=== PATIENT | female | born 1940 | race Caucasian/White ===

== ENCOUNTER → 2016-07-16 | Outpatient (CLI) | payer BC ==
[~2016-07-16] MED LIST: ASPI81TA28 PO; CALC600T9 PO; CRAN1CAP15 PO; ESTCR BT; FLAXOIL2 PO; HYDR25CA PO; LEVO1TAB34 PO; LINE1TAB6 PO; MULT-506 PO; ZNTT/150 PO
--- NOTE | 2016-07-16 13:35 | DIAGNOSTIC IMAGING REPORT ---
MRI OF THE BRAIN WITHOUT IV CONTRAST CLINICAL HISTORY: Optic nerve disorder. COMPARISON STUDY: No priors. TECHNIQUE: MRI of the brain was performed utilizing various T1 and T2-weighted sequences in the axial, sagittal, and coronal planes. IV contrast was not administered for this examination. Additional high-resolution T2-weighted sequences were performed to the skull base to better assess the optic nerves. FINDINGS: Brain parenchyma: There is mild age-related involutional change. Minimal periventricular microangiopathic disease is identified. There is no hemorrhage or mass effect. There is no restricted diffusion to suggest acute ischemia. Bucio-white matter differentiation is preserved. No extra-axial fluid collection is seen. The cerebellar tonsils are normal in configuration. Ventricles, sulci, and cisterns: Normal in configuration. Pituitary and sella: The pituitary gland is prominent for age. Intracranial vasculature: Normal flow voids are maintained at the skull base. Orbits: The bony orbits are grossly intact. Orbital contents are normal in appearance noting bilateral ocular lens implants. The optic nerves appear normal and symmetric. Sinuses and mastoids: There is subtotal opacification of the left frontal as well as anterior left ethmoid sinuses. The remaining paranasal sinuses and the mastoid air cells are clear. Calvarium: Unremarkable. Cervical cord: Partially visualized cervical spinal cord is normal in morphology and signal intensity. IMPRESSION: 1. No acute intracranial abnormality. 2. The optic nerves are normal as imaged. 3. The pituitary gland is prominent for age. This is of indeterminant, if any, clinical significance. 4. Paranasal sinus disease as above. Electronically signed by: Martin Hughes M.D. 07/16/2016 1:34 PM Dictated Date/Time: 07/16/2016 1:29 PM
== END | disposition home or self-care (01) ==
LOC: C.MRI 12:32
PROVIDERS: ATTEND Family Medicine
DX: H47.099 Other disorders of optic nerve, not elsewhere classified, unspecified eye (principal)

== ENCOUNTER → 2016-08-20 | Outpatient (CLI) | payer BC ==
--- NOTE | 2016-08-20 16:08 | MAMMOGRAPHY REPORT ---
BILATERAL DIGITAL SCREENING MAMMOGRAM WITH CAD: 08/20/2016 CLINICAL HISTORY: Routine screening. Patient has no complaints. TECHNIQUE: Bilateral CC and MLO views were obtained. Current study was also evaluated with a Comput er Aided Detection (CAD) system. COMPARISON: Comparison is made to exams dated: 08/12/2015 mammogram, 07/31/2013 mammogram, 08/06/2014 m ammogram, 07/25/2012 mammogram, 07/20/2011 mammogram, and 07/14/2010 mammogram - [facility] enter. BREAST COMPOSITION: There are scattered areas of fibroglandular density in both breasts. FINDINGS: There are scattered benign rim calcifications in the breasts. No suspicious mass, rhett ectural distortion or cluster of microcalcifications is seen. IMPRESSION: ACR BI-RADS CATEGORY 1: NEGATIVE There is no mammographic evidence of malignancy. A 1 year screening mammogram is recommended. The p atient will receive written notification of the results. Approximately 10% of breast cancers are not detected with mammography. A negative mammographic repor t should not delay biopsy if a clinically suggestive mass is present. Rosemary Russell M.D. ay/:08/20/2016 15:55:27 Chief Legal Officer: Kelley SNYDER(Naveed)(M), [facility] letter sent: Normal 1/2 BI-RADS Code: ACR BI-RADS Category 1: Negative
== END | disposition home or self-care (01) ==
LOC: C.MAMM 14:28
PROVIDERS: ATTEND Family Medicine
DX: Z12.31 Encounter for screening mammogram for malignant neoplasm of breast (principal)

== ENCOUNTER → 2017-03-04 | Outpatient (CLI) | payer BC ==
[~2017-03-04] MED LIST changes: -LEVO1TAB34 PO; -LINE1TAB6 PO
== END | disposition home or self-care (01) ==
LOC: C.RDSM 14:04
PROVIDERS: ATTEND Family Medicine
DX: R22.30 Localized swelling, mass and lump, unspecified upper limb (principal)

== ENCOUNTER → 2017-06-17 | Outpatient (CLI) | payer BC ==
--- NOTE | 2017-06-17 12:31 | DIAGNOSTIC IMAGING REPORT ---
ABDOMINAL ULTRASOUND COMPLETE HISTORY: Abdominal bloating.. COMPARISON: Abdominal ultrasound 11/16/2011. FINDINGS: Pancreas: The pancreas demonstrates a normal echotexture. Main pancreatic duct is top normal in diameter measuring between 2 and 3 mm. Liver: Unremarkable. Gallbladder: No gallbladder wall thickening. No gallstones. CBD: 3 mm. Kidneys: The right kidney measures 10 cm and the left kidney measures 9.7 cm. Mild fullness within the right renal pelvis without tremaine hydronephrosis. Spleen: Normal in size. Aorta: The visualized proximal abdominal aorta is normal in caliber. The mid to distal abdominal aorta is obscured by overlying bowel gas. IVC: Patent. IMPRESSION: 1. Normal gallbladder. No gallstones. 2. Mild fullness within the right renal pelvis without tremaine hydronephrosis. 3. No acute process within the abdomen. Electronically signed by: Stevan Walters M.D. 06/17/2017 12:29 PM Dictated Date/Time: 06/17/2017 12:26 PM
--- NOTE | 2017-06-17 12:39 | DIAGNOSTIC IMAGING REPORT ---
EXAMINATION: PELVIC ULTRASOUND (transabdominal and endovaginal scanning) CLINICAL HISTORY: ABD BLOATING COMPARISON STUDY: None FINDINGS: The uterus measured 5.4 x 2.3 x 3.4 cm. The endometrial stripe measured 2 mm. There is trace fluid within the endometrial cavity. Neither ovary was visualized There was no evidence of pathologic free pelvic fluid. IMPRESSION: 1. Nonvisualization of the ovaries 2. No uterine masses identified Electronically signed by: Kirill Shelby M.D. 06/17/2017 12:37 PM Dictated Date/Time: 06/17/2017 12:36 PM
== END | disposition home or self-care (01) ==
LOC: C.ULTR 11:08
PROVIDERS: ATTEND Family Medicine
DX: R14.0 Abdominal distension (gaseous) (principal)

== ENCOUNTER → 2017-06-26 | Outpatient (CLI) | payer BC ==
--- NOTE | 2017-06-26 15:32 | DIAGNOSTIC IMAGING REPORT ---
L-SPINE MIN 4 VIEWS ROUTINE HISTORY: Pain. Neuropathy. M54.17 Lumbosacral [id number] COMPARISON: None. FINDINGS: There is no fracture. No subluxation. Moderate degenerative disc change throughout. Moderate degenerative change posterior elements. IMPRESSION: No fracture or subluxation within the lumbar spine. Moderate degenerative change. No acute bony abnormality. The above report was generated using voice recognition software. It may contain grammatical, syntax or spelling errors. Electronically signed by: Liam Lawrence M.D. 06/26/2017 3:31 PM Dictated Date/Time: 06/26/2017 3:29 PM
== END | disposition home or self-care (01) ==
LOC: C.RAD1850 15:15
PROVIDERS: ATTEND Psychiatry & Neurology Neurology
DX: M54.17 Radiculopathy, lumbosacral region (principal)

== ENCOUNTER → 2017-08-19 | Outpatient (CLI) | payer BC ==
[~2017-08-19] MED LIST changes: +RANI150T85 PO; -ZNTT/150 PO
== END | disposition home or self-care (01) ==
LOC: C.MAMM 13:35
PROVIDERS: ATTEND Family Medicine
DX: M85.89 Other specified disorders of bone density and structure, multiple sites (principal)

== ENCOUNTER → 2017-08-21 | Outpatient (CLI) | payer BC ==
--- NOTE | 2017-08-22 15:15 | MAMMOGRAPHY REPORT ---
BILATERAL DIGITAL SCREENING MAMMOGRAM TOMOSYNTHESIS WITH CAD: 08/21/2017 CLINICAL HISTORY: Routine screening. Patient has no complaints. TECHNIQUE: Breast tomosynthesis in addition to standard 2D mammography was performed. Current study was also evaluated with a Computer Aided Detection (CAD) system. COMPARISON: Comparison is made to exams dated: 08/20/2016 mammogram, 08/12/2015 mammogram, 08/06/2014 ma mmogram, 07/31/2013 mammogram, 07/25/2012 mammogram, and 07/20/2011 mammogram - [facility]ter. BREAST COMPOSITION: There are scattered areas of fibroglandular density in both breasts. FINDINGS: There are a few scattered benign rim calcifications. No suspicious mass, architectural dis tortion or cluster of microcalcifications is seen. IMPRESSION: ACR BI-RADS CATEGORY 1: NEGATIVE There is no mammographic evidence of malignancy. A 1 year screening mammogram is recommended. The pa tient will receive written notification of the results. Approximately 10% of breast cancers are not detected with mammography. A negative mammographic report should not delay biopsy if a clinically suggestive mass is present. Rosemary Russell M.D. ay/:08/21/2017 15:34:55 Research Project Coordinator: Laquita SNYDER(Naveed)(Vikki), [facility] letter sent: Normal 1/2 BI-RADS Code: ACR BI-RADS Category 1: Negative
== END | disposition home or self-care (01) ==
LOC: C.MAMM 13:47
PROVIDERS: ATTEND Family Medicine
DX: Z12.31 Encounter for screening mammogram for malignant neoplasm of breast (principal)

== ENCOUNTER 2018-01-11 14:03 | Inpatient (IN) | payer BC, OTHER ==
[2018-01-11] VITALS (12 sets, daily range): BP systolic 108–177; BP diastolic 58–86; PULSE 60–84; TEMP 36.5–37; O2SAT 95–100; Ht 160 cm; Wt 52.2 kg
[~2018-01-11] VITALS: Ht 160 cm; Wt 52.2 kg
[~2018-01-11 14:03] MED LIST changes: -ASPI81TA28 PO; -CALC600T9 PO; -ESTCR BT; -FLAXOIL2 PO; -MULT-506 PO; -RANI150T85 PO
[2018-01-11] MEDS ORDERED: SODIUM CHLORIDE 0.9% 1000ML 1,000 ML IV STA (14:16)
[2018-01-11] MEDS ORDERED: ASPI81TA28 PO (14:21)
[2018-01-11] MEDS ORDERED: RANI150T85 PO (14:21)
[2018-01-11] MEDS ORDERED: FLAXOIL2 PO (14:21)
[2018-01-11] MEDS ORDERED: ESTCR BT (14:21)
[2018-01-11] MEDS ORDERED: MULT-506 PO (14:21)
[2018-01-11] MEDS ORDERED: CALC600T9 PO (14:21)
[2018-01-11 14:44] LABS: PTT PATIENT 23.6 SECONDS (21.0-31.0)
--- NOTE | 2018-01-11 14:44 | DIAGNOSTIC IMAGING REPORT ---
SINGLE VIEW CHEST CLINICAL HISTORY: Anemia. FINDINGS: An AP, portable, upright chest radiograph is compared to study dated 10/25/2010. The examination is degraded by portable technique and patient rotation. The heart is top normal for projection and there is atherosclerotic calcification of the thoracic aorta. Chronic interstitial thickening is similar to previous. Linear atelectasis versus scarring is noted in the left lower lung. No airspace consolidation or pleural effusion is identified. No pneumothorax is seen. The skeletal structures are osteopenic. The bony thorax is grossly intact. Mild degenerative change and scoliosis are identified in the thoracic spine. IMPRESSION: No acute cardiopulmonary abnormality. Electronically signed by: Martin Hughes M.D. 01/11/2018 2:43 PM Dictated Date/Time: 01/11/2018 2:42 PM
[2018-01-11 14:46] LABS: HEMATOCRIT 21.1 % (37-47); HEMOGLOBIN 5.9 g/dL (12.0-16.0); MEAN CELL VOLUME 66.6 fL (80-100); MEAN CORPUSCULAR HEMOGLOBIN 18.6 pg (25-34); MEAN PLATELET VOLUME 7.3 fL (7.4-10.4); PLATELET COUNT 390 K/uL (130-400); RED CELL DISTRIBUTION WIDTH CV 17.3 % (11.5-14.5); RED CELL DISTRIBUTION WIDTH SD 42.6 fL (36.4-46.3); WHITE BLOOD COUNT 7.31 K/uL (4.8-10.8)
[2018-01-11 14:53] LABS: BASO % 0.3 %; BASO ABS # 0.02 K/uL (0-0.2); EOS % 0.8 %; EOS ABS # 0.06 K/uL (0-0.5); IG# 0.02 K/uL (0.00-0.02); LYMPH % 21.6 %; LYMPH ABS # 1.58 K/uL (1.2-3.4); MONO % 14.2 %; MONO ABS # 1.04 K/uL (0.11-0.59); NEUT % 62.8 %; NEUT ABS # 4.59 K/uL (1.4-6.5)
[2018-01-11 15:00] LABS: ALBUMIN 3.6 gm/dl (3.4-5.0); ALKALINE PHOSPHATASE 69 U/L (45-117); ALT/SGPT 21 U/L (12-78); AST/SGOT 20 U/L (15-37); BLOOD UREA NITROGEN 17 mg/dl (7-18); CALCIUM 8.6 mg/dl (8.5-10.1); CARBON DIOXIDE 26 mmol/L (21-32); CREATININE 0.93 mg/dl (0.60-1.20); GLUCOSE 87 mg/dl (70-99); LIPASE 179 U/L (73-393); SODIUM 136 mmol/L (136-145); TOTAL PROTEIN 7.2 gm/dl (6.4-8.2)
[2018-01-11] MEDS ORDERED: ACETAMINOPHEN 325 MG TAB PO PRN (17:00)
[2018-01-11] MEDS ORDERED: ONDANSETRON INJ 2 MG/ML 2 ML VIAL IV PRN (17:00)
--- NOTE | 2018-01-11 17:10 | EMERGENCY ROOM VISIT NOTE ---
History Report prepared by Tomas: Esdras Rosario Under the Supervision of: Dr. Blair Peoples D.O. First contact with patient: 14:07 Chief Complaint: ABNORMAL LABS Stated Complaint: HEMOGLOBIN 5, REF'D BY DR RUBALCAVA History of Present Illness The patient is a 77 year old female who presents to the Emergency Room after referral form her primary care physician's office for abnormal findings on laboratory studies that were found today. The patient's daughter at bedside notes that laboratory work showed a hemoglobin of 6. The patient notes that she had the laboratory work performed due to unusual "burning, soreness, and spasms " in her lower extremities. The patient denies any physical complaints at this time, although she does not some shortness of breath upon exertion. She denies any further headache, change in vision, fevers, chest pain, nausea, vomiting, diarrhea, pain with urination, and melena. Her last colonoscopy was 10 years ago. Source of History: patient, family Onset: Today Position: leg (bilateral) Quality: other ("burning, soreness, and spasms") Timing: other (Lab work found today) Associated Symptoms: + SOB, No nausea, No vomiting, No diarrhea Review of Systems See HPI for pertinent positives & negatives. A total of 10 systems reviewed and were otherwise negative. Past Medical & Surgical Medical Problems: (1) Foot ulcer (2) Severe anemia Family History Omitted secondary to patient age. Social History Smoking Status: Never Smoker Drug Use: none Marital Status: Occupation Status: retired Current/Historical Medications Scheduled Aspirin (Aspirin Ec), 81 MG PO DAILY Calcium Carbonate-Vitamin D (Calcium + D), 1 TABS PO DAILY Estradiol Vaginal (Estrace), 1 APPL BT 2XWK Flaxseed (Linseed) (Flax Oil), 1 CAP PO DAILY Multivitamin (Multivitamin), 1 TAB PO DAILY Ranitidine (Zantac), 1 TAB PO BID Allergies Coded Allergies: Azithromycin (Unverified Allergy, Mild, RASH, 01/11/18) Banana (Unverified Allergy, Mild, RASH, 01/11/18) Cephalexin (Unverified Allergy, Mild, RASH, 01/11/18) Dexamethasone (Unverified Allergy, Mild, RASH, 01/11/18) Doxycycline (Unverified Allergy, Mild, RASH, 01/11/18) Penicillins (Unverified Allergy, Mild, RASH, 01/11/18) Sulfa Antibiotics (Unverified Allergy, Mild, RASH, 01/11/18) Triamcinolone (Unverified Allergy, Mild, RASH, 01/11/18) Fluticasone (Unverified Adverse Reaction, Mild, RASH, 01/11/18) Prednisone (Unverified Adverse Reaction, Mild, RASH, 01/11/18) Uncoded Allergies: kenalog (Allergy, Mild, RASH, 11/06/16) milk products (Allergy, Mild, RASH, 11/06/16) Physical Exam Vital Signs Date Time Temp Pulse Resp B/P (MAP) Pulse Ox O2 Delivery O2 Flow Rate FiO2 01/11/18 15:35 70 14 144/73 100 Room Air 01/11/18 14:38 67 01/11/18 14:34 99 Room Air 01/11/18 14:05 36.7 81 18 160/77 97 Room Air Physical Exam GENERAL: Sitting up in bed, appears pale, alert, well appearing, well nourished , no distress, non-toxic EYE EXAM: normal conjunctiva. OROPHARYNX: no exudate, no erythema, lips, buccal mucosa, and tongue normal and mucous membranes are moist NECK: supple, no nuchal rigidity, no adenopathy, non-tender LUNGS: Clear to auscultation. Normal chest wall mechanics HEART: no murmurs, S1 normal and S2 normal ABDOMEN: abdomen soft, non-tender, normo-active bowel sounds, no masses, no rebound or guarding. BACK: Back is symmetrical on inspection and there is no deformity, no midline tenderness, no CVA tenderness. SKIN: no rashes and no bruising UPPER EXTREMITIES: upper extremities are grossly normal. LOWER EXTREMITIES: No pitting edema. NEURO EXAM: Normal sensorium, cranial nerves II-XII grossly intact, normal speech, no gross weakness of arms, no gross weakness of legs. RECTAL: Rectal exam heme negative. Medical Decision & Procedures ER Provider Diagnostic Interpretation: Radiology results as stated below per my review and the radiologist's interpretation: SINGLE VIEW CHEST CLINICAL HISTORY: Anemia. FINDINGS: An AP, portable, upright chest radiograph is compared to study dated 10/25/2010. The examination is degraded by portable technique and patient rotation. The heart is top normal for projection and there is atherosclerotic calcification of the thoracic aorta. Chronic interstitial thickening is similar to previous. Linear atelectasis versus scarring is noted in the left lower lung. No airspace consolidation or pleural effusion is identified. No pneumothorax is seen. The skeletal structures are osteopenic. The bony thorax is grossly intact. Mild degenerative change and scoliosis are identified in the thoracic spine. IMPRESSION: No acute cardiopulmonary abnormality. Electronically signed by: Martin Hughes M.D. 01/11/2018 2:43 PM Dictated Date/Time: 01/11/2018 2:42 PM Laboratory Results 01/11/18 14:25 Red Blood Count 3.17, Mean Corpuscular Volume 66.6, Mean Corpuscular Hemoglobin 18.6, Mean Corpuscular Hemoglobin Concent 28.0, Mean Platelet Volume 7.3, Neutrophils (%) (Auto) 62.8, Lymphocytes (%) (Auto) 21.6, Monocytes (%) (Auto) 14.2, Eosinophils (%) (Auto) 0.8, Basophils (%) (Auto) 0.3, Neutrophils # (Auto ) 4.59, Lymphocytes # (Auto) 1.58, Monocytes # (Auto) 1.04, Eosinophils # (Auto ) 0.06, Basophils # (Auto) 0.02 01/11/18 14:25 Test 01/11/18 14:25 White Blood Count 7.31 K/uL (4.8-10.8) Red Blood Count 3.17 M/uL (4.2-5.4) Hemoglobin 5.9 g/dL (12.0-16.0) Hematocrit 21.1 % (37-47) Mean Corpuscular Volume 66.6 fL (80-100) Mean Corpuscular Hemoglobin 18.6 pg (25-34) Mean Corpuscular Hemoglobin Concent 28.0 g/dl (32-36) Platelet Count 390 K/uL (130-400) Mean Platelet Volume 7.3 fL (7.4-10.4) Neutrophils (%) (Auto) 62.8 % Lymphocytes (%) (Auto) 21.6 % Monocytes (%) (Auto) 14.2 % Eosinophils (%) (Auto) 0.8 % Basophils (%) (Auto) 0.3 % Neutrophils # (Auto) 4.59 K/uL (1.4-6.5) Lymphocytes # (Auto) 1.58 K/uL (1.2-3.4) Monocytes # (Auto) 1.04 K/uL (0.11-0.59) Eosinophils # (Auto) 0.06 K/uL (0-0.5) Basophils # (Auto) 0.02 K/uL (0-0.2) RDW Standard Deviation 42.6 fL (36.4-46.3) RDW Coefficient of Variation 17.3 % (11.5-14.5) Immature Granulocyte % (Auto) 0.3 % Immature Granulocyte # (Auto) 0.02 K/uL (0.00-0.02) Hypochromasia PRESENT Microcytosis PRESENT Prothrombin Time 10.8 SECONDS (9.0-12.0) Prothromb Time International Ratio 1.0 (0.9-1.1) Activated Partial Thromboplast Time 23.6 SECONDS (21.0-31.0) Partial Thromboplastin Ratio 0.9 Anion Gap 7.0 mmol/L (3-11) Est Creatinine Clear Calc Drug Dose 41.1 ml/min Estimated GFR () 68.2 Estimated GFR (Non- 58.9 BUN/Creatinine Ratio 18.3 (10-20) Calcium Level 8.6 mg/dl (8.5-10.1) Total Bilirubin 0.5 mg/dl (0.2-1) Direct Bilirubin 0.2 mg/dl (0-0.2) Aspartate Amino Transf (AST/SGOT) 20 U/L (15-37) Alanine Aminotransferase (ALT/SGPT) 21 U/L (12-78) Alkaline Phosphatase 69 U/L (45-117) Troponin I < 0.015 ng/ml (0-0.045) Total Protein 7.2 gm/dl (6.4-8.2) Albumin 3.6 gm/dl (3.4-5.0) Lipase 179 U/L (73-393) Laboratory results per my review. Medications Administered Medications (Trade) Dose Ordered Sig/Romana Route Start Time Stop Time Status Last Admin Dose Admin Sodium Chloride 1,000 ml @ 999 mls/hr Q1H1M STAT IV 01/11/18 14:16 01/11/18 15:16 DC 01/11/18 14:42 999 MLS/HR ECG Per My Interpretation Indication: other (Anemia) Rate (beats per minute): 66 Rhythm: sinus rhythm Findings: no ectopy, other (LAD) ED Course ED COURSE: Vital signs were reviewed and showed situationally hypertensive vitals. The patients medical record was reviewed The above diagnostic studies were performed and reviewed. ED treatments and interventions as stated above. 1407: The patient was evaluated in room B11B. A complete history and physical examination was performed. 1451: I performed a rectal exam at this time. See physical exam for further findings. 1416: Ordered Sodium Chloride 1000 mL @ 999 mL/hr IV. 1514: I discussed with Dr. Janny FERREIRA Hospitalist. He will evaluate the patient for further treatment. []: Upon reevaluation, the patient is []. I discussed my findings with the [ patient] and [] understands and agrees with the treatment plan. Based on the patients age, coexisting illnesses, exam and lab findings the decision to treat as an [inpatient][outpatient] was made. The patient remained stable while under my care. [The patient appeared well at the time of discharge.] [The patient will be evaluated for further management.] Medical Decision Differential Diagnosis includes but is not limited to dehydration, stroke, anemia, hypoglycemia, hyponatremia, hypernatremia, urinary tract infection, pneumonia, bronchitis, sepsis, gastroenteritis, additional abdominal pathology, metabolic abnormalities and infections. Patient is a 77-year-old female who presents the ER referred in by PCP. She does admit to some exertional shortness of breath and fatigue. No other complaints. Hemoglobin was obtained and showed 5.9. MCV was low at 66. Rectally heme-negative. CBC along with BMP, LFTs, bilirubin and troponin was negative. Lipase is normal. No blood thinners. No other complaints. Patient was typed and crossed and given 2 units of PRBCs. Patient was given 2 units of PRBCs. Patient was monitored closely and admitted to internal medicine with symptomatic anemia and hemoglobin of 5.9 given 2 units of PRBCs. Medication Reconcilliation Current Medication List: was personally reviewed by me Blood Pressure Screening Patient's blood pressure: Elevated blood pressure Blood pressure disposition: Elevated BP felt to be situational Consults Time Called: 1508 Consulting Physician: Dr. Janny FERREIRA Hospitalist Returned Call: [address] Janny Butterfield. He will evaluate the patient for further treatment. Impression Primary Impression: Symptomatic anemia Critical Care I have personally spent 35 minutes of critical care time in the direct management of this patient. This includes bedside care, interpretation of diagnostic studies, and testing, discussion with consultants, patient, and family members, and other required patient management activities. This 35 minutes is in excess of all separately billable procedures. Scribe Attestation The scribe's documentation has been prepared under my direction and personally reviewed by me in its entirety. I confirm that the note above accurately reflects all work, treatment, procedures, and medical decision making performed by me. Departure Information Dispostion Being Evaluated By Hospitalist Referrals Darline Rubalcava D.O. (PCP) Patient Instructions My [facility]
--- NOTE | 2018-01-11 17:45 | History and Physical ---
History & Physical Date & Time of Service: Jan 11, 2018 at 17:25 Chief Complaint: Hemoglobin 5, Ref'd By Dr Marte Primary Care Physician: Darline Marte D.O. History of Present Illness Source: patient, family, clinic records, hospital records Pt is a 77yo with 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 States she saw her PCP on prior for a crampy/ "funny" feeling in her legs. Blood work was done and showed a hg of 6, and once resulted she was told to proceed to the ED immediately. She however, presented today. Denies hemoptysis, melena/hematochezia, or vaginal bleeds. States last colonoscopy was 10 years ago and unremarkable. Diet consists of cereal for breakfast with no milk (allergic) and fruit for lunch. States dinner is her heaviest meal and she eats anything. Denies being on a blood thinner. Has never had history of bleeding abnormally. Has some bruising on her right arm which she attributes to hitting it while working in her closet. Daughter in the room states that her daughter (pt's granddaughter) was recently diagnosed with von Willebrand's Disease 4 months prior. Pt was not aware of that. Both patient and daughter state that they have noticed that she was paler than usual for the last 3 days. Pt denies dizziness, SOB, chest pain, palpitations, N/V, diarrhea and constipation. Past Medical/Surgical History Medical Problems: (1) Foot ulcer (2) Severe anemia Family History Pt's daughter states that pt's granddaughter has diagnosis of von Willebrand's disease. Social History Smoking Status: Never Smoker Alcohol Use: none Drug Use: none Marital Status: Occupational Status: retired Allergies Coded Allergies: Azithromycin (Unverified Allergy, Mild, RASH, 01/11/18) Banana (Unverified Allergy, Mild, RASH, 01/11/18) Cephalexin (Unverified Allergy, Mild, RASH, 01/11/18) Dexamethasone (Unverified Allergy, Mild, RASH, 01/11/18) Doxycycline (Unverified Allergy, Mild, RASH, 01/11/18) Penicillins (Unverified Allergy, Mild, RASH, 01/11/18) Sulfa Antibiotics (Unverified Allergy, Mild, RASH, 01/11/18) Triamcinolone (Unverified Allergy, Mild, RASH, 01/11/18) Fluticasone (Unverified Adverse Reaction, Mild, RASH, 01/11/18) Prednisone (Unverified Adverse Reaction, Mild, RASH, 01/11/18) Uncoded Allergies: kenalog (Allergy, Mild, RASH, 11/06/16) milk products (Allergy, Mild, RASH, 11/06/16) Home Medications Scheduled Aspirin (Aspirin Ec), 81 MG PO DAILY Calcium Carbonate-Vitamin D (Calcium + D), 1 TABS PO DAILY Estradiol Vaginal (Estrace), 1 APPL BT 2XWK Flaxseed (Linseed) (Flax Oil), 1 CAP PO DAILY Multivitamin (Multivitamin), 1 TAB PO DAILY Ranitidine (Zantac), 1 TAB PO BID Review of Systems Constitutional: + fatigue Respiratory: No cough, No shortness of breath, No dyspnea on exertion, No dyspnea at rest, No hemoptysis Cardiovascular: No chest pain, No edema, No claudication, No palpitations Abdomen: No pain, No nausea, No vomiting, No diarrhea, No constipation, No GI bleeding Musculoskeletal: No calf pain Genitourinary - Female: No hematuria, No menorrhagia, No vaginal bleeding Hematologic / Lymphatic: No abnormal bleeding/bruising, No clotting problems, No swollen lymph nodes Integumentary: + color change (skin paler) Physical Exam Vital Signs Date Time Temp Pulse Resp B/P (MAP) Pulse Ox O2 Delivery O2 Flow Rate FiO2 01/11/18 17:10 37.0 84 20 159/76 99 01/11/18 15:35 70 14 144/73 100 Room Air 01/11/18 14:38 67 01/11/18 14:34 99 Room Air 01/11/18 14:05 36.7 81 18 160/77 97 Room Air General Appearance: WD/WN, no apparent distress Head: normocephalic, atraumatic Eyes: PERRL Neck: supple, no adenopathy, no JVD, no carotid bruits Respiratory/Chest: lungs clear, normal breath sounds, no respiratory distress, no accessory muscle use Cardiovascular: regular rate, rhythm, no edema, normal peripheral pulses Abdomen/GI: normal bowel sounds, non tender, soft Extremities/Musculoskelatal: no calf tenderness, normal capillary refill, no pedal edema, + pertinent finding (Right arm has multiple 2-3cm red/purple bruises) Neurologic/Psych: linoleum floor layer II-XII nml as tested, alert, normal mood/affect, oriented x 3 Skin: warm/dry Diagnostics Laboratory Results Results Past 24 Hours Test 01/11/18 14:25 Range/Units White Blood Count 7.31 4.8-10.8 K/uL Red Blood Count 3.17 4.2-5.4 M/uL Hemoglobin 5.9 12.0-16.0 g/dL Hematocrit 21.1 37-47 % Mean Corpuscular Volume 66.6 80-100 fL Mean Corpuscular Hemoglobin 18.6 25-34 pg Mean Corpuscular Hemoglobin Concent 28.0 32-36 g/dl Platelet Count 390 130-400 K/uL Mean Platelet Volume 7.3 7.4-10.4 fL Neutrophils (%) (Auto) 62.8 % Lymphocytes (%) (Auto) 21.6 % Monocytes (%) (Auto) 14.2 % Eosinophils (%) (Auto) 0.8 % Basophils (%) (Auto) 0.3 % Neutrophils # (Auto) 4.59 1.4-6.5 K/uL Lymphocytes # (Auto) 1.58 1.2-3.4 K/uL Monocytes # (Auto) 1.04 0.11-0.59 K/uL Eosinophils # (Auto) 0.06 0-0.5 K/uL Basophils # (Auto) 0.02 0-0.2 K/uL RDW Standard Deviation 42.6 36.4-46.3 fL RDW Coefficient of Variation 17.3 11.5-14.5 % Immature Granulocyte % (Auto) 0.3 % Immature Granulocyte # (Auto) 0.02 0.00-0.02 K/uL Hypochromasia PRESENT Microcytosis PRESENT Prothrombin Time 10.8 9.0-12.0 SECONDS Prothromb Time International Ratio 1.0 0.9-1.1 Activated Partial Thromboplast Time 23.6 21.0-31.0 SECONDS Partial Thromboplastin Ratio 0.9 Sodium Level 136 136-145 mmol/L Potassium Level 4.0 3.5-5.1 mmol/L Chloride Level 103 98-107 mmol/L Carbon Dioxide Level 26 21-32 mmol/L Anion Gap 7.0 3-11 mmol/L Blood Urea Nitrogen 17 7-18 mg/dl Creatinine 0.93 0.60-1.20 mg/dl Est Creatinine Clear Calc Drug Dose 41.1 ml/min Estimated GFR () 68.2 Estimated GFR (Non- 58.9 BUN/Creatinine Ratio 18.3 10-20 Random Glucose 87 70-99 mg/dl Calcium Level 8.6 8.5-10.1 mg/dl Total Bilirubin 0.5 0.2-1 mg/dl Direct Bilirubin 0.2 0-0.2 mg/dl Aspartate Amino Transf (AST/SGOT) 20 15-37 U/L Alanine Aminotransferase (ALT/SGPT) 21 12-78 U/L Alkaline Phosphatase 69 45-117 U/L Troponin I < 0.015 0-0.045 ng/ml Total Protein 7.2 6.4-8.2 gm/dl Albumin 3.6 3.4-5.0 gm/dl Lipase 179 73-393 U/L Diagnostic Radiology SINGLE VIEW CHEST CLINICAL HISTORY: Anemia. FINDINGS: An AP, portable, upright chest radiograph is compared to study dated 10/25/2010. The examination is degraded by portable technique and patient rotation. The heart is top normal for projection and there is atherosclerotic calcification of the thoracic aorta. Chronic interstitial thickening is similar to previous. Linear atelectasis versus scarring is noted in the left lower lung. No airspace consolidation or pleural effusion is identified. No pneumothorax is seen. The skeletal structures are osteopenic. The bony thorax is grossly intact. Mild degenerative change and scoliosis are identified in the thoracic spine. IMPRESSION: No acute cardiopulmonary abnormality. Electronically signed by: Martin Hughes M.D. 01/11/2018 2:43 PM Dictated Date/Time: 01/11/2018 2:42 PM Normal EKG (HR of 66) Impression Assessment and Plan Pt is a 77yo with 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 Severe Iron deficiency Anemia - Pt was transfused 1 unit of PRBCs in the ED and will get one more. 2 PRBC on hold. will monitor H/H - No active bleeding. Likely chronic bleeding - last hb in [employer] from 2016 - hb 10 with low end of MCV - Consult with GI for work up - Positive fam hx of von Willebrand's - aptt normal. -hold home med aspirin GERD -Hold home med ranitidine -Administer Protonix 40mg PRN Livedoid vasculitis -not currently symptomatic -will follow with PCP DVT Prophylaxis: SCDs Diet: Regular diet Disposition: -Admit to floor (likely Med-Surg) Full Resuscitation SCD Resuscitation Status Full resuscitation VTE Prophylaxis Will order VTE Prophylaxis: Yes (SCDs) Reviewed: Pt Seen/Exam by Me History 77 y/o F sent to ED for noted severe anemia Constitutional: denies: fever, weakness Respiratory: negative: short of breath Cardiovascular: denies chest pain Gastrointestinal/Abdominal: positive: no symptoms reported, negative: abdominal pain Musculoskeletal: negative: back pain Neurological/Psych: positive: other (had restless leg symptoms +) General Appearance: no apparent distress Respiratory: lungs clear, no respiratory distress Cardiovascular: regular rate, rhythm Gastrointestinal: soft Neurologic/Psychiatric: alert, oriented x 3 Skin Characteristics: warm/dry Assessment/Plan Resident Physician Supervision Note: I independently interviewed and examined the patient and verified the sanchez history and physical, reviewed labs and image studies, discussed the case with the resident Dr. Castro and agree with the findings and care plan.
--- NOTE | 2018-01-11 19:46 | GASTROINTESTINAL CONSULTATION ---
DATE OF CONSULTATION: 01/11/2018 REQUESTING PHYSICIAN: Dr. Peterson. HISTORY OF PRESENT ILLNESS: Mrs. Candelaria is a 77-year-old white female who was seen by her primary care provider, Dr. Maret in mid week and CBC was performed. The CBC was found to show a significant microcytic anemia. Hemoglobin was 5.9, MCV of 66.6 today, platelets 390, white count 7.31. There is significant microcytosis. BUN and creatinine are 17 and 0.93. Electrolytes are normal with potassium 4.0. LFTs, total bilirubin 0.5, direct 0.2, AST 20, ALT 21, alkaline phosphatase 69, lipase 179. The patient reports no sources of blood loss by her recollection. Specifically, there was no hematemesis, coffee-ground emesis, odynophagia, dysphagia, weight loss, abdominal pain, melena, bright red blood per rectum, diarrhea or constipation. She is unaware of any prior history of anemia. She did have a colonoscopy by Dr. Santos approximately 10 years ago for which she reports nothing found and reports annual Hemoccult testing which was also negative. There is no family history of celiac disease. The patient reports no significant past medical or surgical history. She had one vaginal delivery. She does not take any prescription or [id number] medications other than perhaps a rare ibuprofen, maybe once monthly or less for an occasional ache. She does not use aspirin products. There is no history of liver disease. ALLERGIES: SHE IS ALLERGIC TO SEVERAL AGENTS INCLUDING AZITHROMYCIN, BANANAS, KEFLEX, DEXAMETHASONE, DOXYCYCLINE, FLUTICASONE, PENICILLIN, SULFA ANTIBIOTICS, PREDNISONE. FAMILY HISTORY: Noncontributory for colorectal cancer, inflammatory bowel disease. 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 REVIEW OF SYSTEMS: Otherwise noncontributory based on 13-point exam except for mentioned above. She denies any urinary bleeding, dysuria, hematuria or menstrual bleeding or spotting. PHYSICAL EXAMINATION: VITAL SIGNS: Today in the Emergency Room, blood pressure 160/77, 97% on room air, pulse 81, respirations 18 and she is afebrile. GENERAL: The patient is accompanied by her daughter. The patient is awake, alert, and oriented x3, in no distress. HEENT: Sclerae anicteric, conjunctivae moist. Oral mucosa moist. Head: Normocephalic, atraumatic. NECK: Normal range of motion. LUNGS: Clear to auscultation without rales, rhonchi or wheezes. HEART: Normal S1, S2, without rubs, gallops or murmurs. ABDOMEN: Soft, flat, nontender, nondistended with normal active bowel sounds. There is no distention. I do not appreciate abdominal bruits or masses. There is no evidence of focal tenderness. There are positive bowel sounds. EXTREMITIES: Without clubbing, cyanosis or edema. RECTAL: Deferred. Her INR is 1.0, PTT 23.6. In the past, she had, in 02/2013, a sed rate of 14. In 02/2017, hepatitis C was negative, hepatitis B surface antibody was negative. Lyme disease negative Varicella zoster titer was 2.59 and chlamydia Trichomonas was nondetected. She did have a rheumatologic workup. MARIO negative. Cryoglobulin is nondetected. Albumin 4.3, ANCA negative, SCL 70 less than 1, double stranded DNA negative. There was concern for vasculitis of the skin. Urinalysis was not performed but in 02/2017, occult blood was negative. IMPRESSION AND PLAN: The patient had a chest x-ray today that showed no acute cardiopulmonary abnormalities. Mrs. Candelaria is a 77-year-old white female, in no acute distress with no reports of decreased energy, shortness of breath, palpitations, dyspnea on exertion or chest pain, found to have a profound microcytic anemia. There is no specific sources witnessed by the patient either overt or subtle changes in stool color. She does not have a significant NSAID history and takes no chronic medications by her description. Sources of this include gastrointestinal and non-gastrointestinal sources as well as possibly iron malabsorption. This would include celiac disease in the differential. Other upper and lower sources include AVMs, polyps, ulcerations, colon masses, although the patient does not have any reports of GI distress or symptoms recently or historically. There is a report that the patient's hemoglobin in 02/2017 had a microcytic anemia with a hemoglobin of 10.2. The patient does exhibit a normal hemoglobin during her lifetime in 1998 at 15.1. MCV was generally in the 90s range from 03/1998 to 04/2005 but was at 82.2 in 02/2017 and currently 66.6. I made the following recommendations: We will plan for upper endoscopy/push enteroscopy and colonoscopy to exclude sources such as AVMs, ulcers, Jose Maria erosions, inflammatory changes, polyps or colonic masses. I will order celiac markers as well. There is a workup in the past for vasculitis and this possibly could be a source of the patient's microcytic anemia. Will plan for upper endoscopy and colonoscopy for Saturday. At some point, the patient may need iron replacement by IV form if the oral is not well tolerated. She is currently receiving 1 unit of packed red cells with 4 units ordered. All questions answered for the patient and her daughter. We will continue to follow with you tomorrow and plan for colonoscopy with prep. For tonight, she can have a normal supper. However, this should be a low residue diet to avoid skins, seeds, and fibers that would be hard to cleanse with tomorrow's prep. All questions answered. STEFFANY
[2018-01-12] VITALS (9 sets, daily range): BP systolic 106–158; BP diastolic 55–83; PULSE 59–65; TEMP 36.6–37.3; O2SAT 95–98
[2018-01-12 01:32] LABS: HEMATOCRIT 25.5 % (37-47); HEMOGLOBIN 7.9 g/dL (12.0-16.0)
[2018-01-12 06:03] LABS: BASO % 0.1 %; BASO ABS # 0.01 K/uL (0-0.2); EOS % 1.6 %; EOS ABS # 0.13 K/uL (0-0.5); HEMATOCRIT 25.4 % (37-47); HEMOGLOBIN 7.9 g/dL (12.0-16.0); IG# 0.03 K/uL (0.00-0.02); LYMPH % 15.1 %; LYMPH ABS # 1.22 K/uL (1.2-3.4); MEAN CELL VOLUME 71.8 fL (80-100); MEAN CORPUSCULAR HEMOGLOBIN 22.3 pg (25-34); MEAN CORPUSCULAR HGB CONC 31.1 g/dl (32-36); MONO % 13.2 %; MONO ABS # 1.07 K/uL (0.11-0.59); NEUT % 69.6 %; NEUT ABS # 5.63 K/uL (1.4-6.5); PLATELET COUNT 351 K/uL (130-400); RED CELL DISTRIBUTION WIDTH CV 21.4 % (11.5-14.5); RED CELL DISTRIBUTION WIDTH SD 55.4 fL (36.4-46.3); WHITE BLOOD COUNT 8.09 K/uL (4.8-10.8)
[2018-01-12] MEDS: PANTOprazole SOD 40 MG TAB PO SCH ×2 (07:45→20:50)
[2018-01-12] MEDS ORDERED: IRON SUCROSE INJ 300 MG in SODIUM CHLORIDE 0.9% 100ML 100 ML IV SCH (09:30)
--- NOTE | 2018-01-12 10:18 | Family Medicine Progress Note ---
Progress Note Date of Service Jan 12, 2018. Subjective Pt evaluation today including: conversation w/ patient, physical exam, chart review Pain: None Voiding: no voiding problems Pt states that she slept well and is feeling fine. Denies fatigue, SOB, chest pain, palpitations. Constitutional: No fever, No fatigue Respiratory: No shortness of breath Cardiovascular: No chest pain, No palpitations Medications Current Inpatient Medications Medications (Trade) Dose Ordered Sig/Romana Route Start Time Stop Time Status Last Admin Dose Admin Acetaminophen (Tylenol Tab) 650 mg Q4H PRN PO 01/11/18 17:00 02/10/18 16:59 Ondansetron HCl (Zofran Inj) 4 mg Q6H PRN IV 01/11/18 17:00 02/10/18 16:59 Pantoprazole Sodium (Protonix Tab) 40 mg BID PO 01/11/18 20:00 02/10/18 20:59 01/12/18 07:45 40 MG Objective Vital Signs Date Time Temp Pulse Resp B/P (MAP) Pulse Ox O2 Delivery O2 Flow Rate FiO2 01/12/18 08:00 Room Air 01/12/18 07:08 37.0 59 20 131/62 (85) 95 Room Air 01/12/18 01:33 36.8 61 16 117/68 95 01/12/18 00:50 36.8 62 18 122/64 97 01/12/18 00:20 36.9 65 18 106/55 97 01/11/18 23:50 36.9 64 18 108/58 97 01/11/18 23:20 36.9 66 18 113/65 95 01/11/18 23:14 36.9 60 18 133/70 (91) 99 Room Air 01/11/18 23:05 36.8 67 18 120/66 95 01/11/18 22:49 36.5 72 18 133/69 97 01/11/18 21:00 36.6 72 18 162/84 99 01/11/18 20:45 Room Air 01/11/18 20:10 37.0 74 20 177/76 100 01/11/18 20:06 100 Room Air 01/11/18 18:14 76 20 169/62 100 01/11/18 18:14 76 20 169/62 100 01/11/18 17:50 37.0 76 17 162/67 99 0.0 8/4/18 17:45 76 17 162/67 99 Room Air 01/11/18 17:26 36.9 78 19 172/86 98 01/11/18 17:10 37.0 84 20 159/76 99 01/11/18 15:35 70 14 144/73 100 Room Air 01/11/18 14:38 67 01/11/18 14:34 99 Room Air 01/11/18 14:05 36.7 81 18 160/77 97 Room Air Physical Exam General Appearance: WD/WN, no apparent distress Eyes: normal inspection ENT: hearing grossly normal Respiratory/Chest: lungs clear, normal breath sounds, no respiratory distress, no accessory muscle use Cardiovascular: regular rate, rhythm, no murmur Abdomen: non tender, soft Extremities: non-tender, no pedal edema, no calf tenderness Neurologic/Psychiatric: alert, normal mood/affect Skin: warm/dry Laboratory Results 01/12/18 05:15 Red Blood Count 3.54, Mean Corpuscular Volume 71.8 #, Mean Corpuscular Hemoglobin 22.3, Mean Corpuscular Hemoglobin Concent 31.1, Mean Platelet Volume 8.0, Neutrophils (%) (Auto) 69.6, Lymphocytes (%) (Auto) 15.1, Monocytes (%) ( Auto) 13.2, Eosinophils (%) (Auto) 1.6, Basophils (%) (Auto) 0.1, Neutrophils # (Auto) 5.63, Lymphocytes # (Auto) 1.22, Monocytes # (Auto) 1.07, Eosinophils # ( Auto) 0.13, Basophils # (Auto) 0.01 01/11/18 14:25 Test 01/11/18 14:25 01/11/18 18:20 01/12/18 05:15 01/12/18 08:47 Microcytosis PRESENT Prothrombin Time 10.8 SECONDS (9.0-12.0) Prothromb Time International Ratio 1.0 (0.9-1.1) Activated Partial Thromboplast Time 23.6 SECONDS (21.0-31.0) Partial Thromboplastin Ratio 0.9 Anion Gap 7.0 mmol/L (3-11) Est Creatinine Clear Calc Drug Dose 41.1 ml/min Estimated GFR () 68.2 Estimated GFR (Non- 58.9 BUN/Creatinine Ratio 18.3 (10-20) Calcium Level 8.6 mg/dl (8.5-10.1) Total Bilirubin 0.5 mg/dl (0.2-1) Direct Bilirubin 0.2 mg/dl (0-0.2) Aspartate Amino Transf (AST/SGOT) 20 U/L (15-37) Alanine Aminotransferase (ALT/SGPT) 21 U/L (12-78) Alkaline Phosphatase 69 U/L (45-117) Troponin I < 0.015 ng/ml (0-0.045) Total Protein 7.2 gm/dl (6.4-8.2) Albumin 3.6 gm/dl (3.4-5.0) Lipase 179 U/L (73-393) White Blood Count 8.09 K/uL (4.8-10.8) Red Blood Count 3.54 M/uL (4.2-5.4) Hemoglobin 7.9 g/dL (12.0-16.0) Hematocrit 25.4 % (37-47) Mean Corpuscular Volume 71.8 fL (80-100) Mean Corpuscular Hemoglobin 22.3 pg (25-34) Mean Corpuscular Hemoglobin Concent 31.1 g/dl (32-36) Platelet Count 351 K/uL (130-400) Mean Platelet Volume 8.0 fL (7.4-10.4) Neutrophils (%) (Auto) 69.6 % Lymphocytes (%) (Auto) 15.1 % Monocytes (%) (Auto) 13.2 % Eosinophils (%) (Auto) 1.6 % Basophils (%) (Auto) 0.1 % Neutrophils # (Auto) 5.63 K/uL (1.4-6.5) Lymphocytes # (Auto) 1.22 K/uL (1.2-3.4) Monocytes # (Auto) 1.07 K/uL (0.11-0.59) Eosinophils # (Auto) 0.13 K/uL (0-0.5) Basophils # (Auto) 0.01 K/uL (0-0.2) RDW Standard Deviation 55.4 fL (36.4-46.3) RDW Coefficient of Variation 21.4 % (11.5-14.5) Immature Granulocyte % (Auto) 0.4 % Immature Granulocyte # (Auto) 0.03 K/uL (0.00-0.02) Hypochromasia PRESENT Anisocytosis PRESENT Urine Color ORANGE Urine Appearance CLEAR (CLEAR) Urine pH 7.0 (4.5-7.5) Urine Specific [place] 1.007 (1.000-1.030) Urine Protein NEG (NEG) Urine Glucose (UA) NEG (NEG) Urine Ketones NEG (NEG) Urine Occult Blood NEG (NEG) Urine Nitrite NEG (NEG) Urine Bilirubin NEG (NEG) Urine Urobilinogen NEG (NEG) Urine Leukocyte Esterase NEG (NEG) Assessment and Plan Pt is a 77yo with 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 Severe Iron deficiency Anemia - Pt was transfused 2 units of PRBCs in the ED. 2 PRBC on hold. H/H improved to 7.9/25.4 today. Will continue to monitor. - No active bleeding. Celiac ds panel sent. Vasculitis work up done in feb 2017 - neg. Likely chronic bleeding - last hb in [place] from 2016 - hb 10 with low end of MCV - GI consulted and work-up in progress -IV Iron Sucrose - one dose 300mgs given. GERD -Hold home med ranitidine -Administer Protonix 40mg PRN Livedoid vasculitis -not currently symptomatic -will follow with PCP DVT Prophylaxis: SCDs Diet: Liquid/ low fiber diet per GI recs -also NPO after midnight Disposition: -Admitted to -Being worked up by the GI service Resident Tracking Resident Involvement: Resident Care Provided Care Provided: Adult Hospital Medicine Reviewed: Pt Seen/Exam by Me History no rectal bleeding felt tired after getting venofer infusion Constitutional: denies: fever Respiratory: negative: short of breath Cardiovascular: denies chest pain General Appearance: no apparent distress Respiratory: lungs clear, no respiratory distress Cardiovascular: regular rate, rhythm Gastrointestinal: soft Neurologic/Psychiatric: alert, oriented x 3 Skin Characteristics: warm/dry Assessment/Plan Resident Physician Supervision Note: I independently interviewed and examined the patient and verified the sanchez history and physical, reviewed labs and image studies, discussed the case with the resident Dr. Castro and agree with the findings and care plan.
[2018-01-12] MEDS ORDERED: LAVAGE SOLUTION 4000ML PO SCH (15:00)
[2018-01-13 05:57] LABS: BASO % 0.4 %; BASO ABS # 0.03 K/uL (0-0.2); EOS % 2.6 %; HEMATOCRIT 25.3 % (37-47); HEMOGLOBIN 7.9 g/dL (12.0-16.0); IG# 0.05 K/uL (0.00-0.02); LYMPH % 17.2 %; LYMPH ABS # 1.34 K/uL (1.2-3.4); MEAN CELL VOLUME 71.7 fL (80-100); MEAN CORPUSCULAR HEMOGLOBIN 22.4 pg (25-34); MEAN CORPUSCULAR HGB CONC 31.2 g/dl (32-36); MEAN PLATELET VOLUME 7.9 fL (7.4-10.4); MONO % 14.2 %; MONO ABS # 1.11 K/uL (0.11-0.59); NEUT ABS # 5.08 K/uL (1.4-6.5); PLATELET COUNT 325 K/uL (130-400); RED CELL DISTRIBUTION WIDTH CV 21.5 % (11.5-14.5); RED CELL DISTRIBUTION WIDTH SD 55.5 fL (36.4-46.3); WHITE BLOOD COUNT 7.81 K/uL (4.8-10.8)
[2018-01-13 06:27] LABS: ALBUMIN 2.8 gm/dl (3.4-5.0); CREATININE 0.74 mg/dl (0.60-1.20); POTASSIUM 3.5 mmol/L (3.5-5.1)
[2018-01-13 06:35] LABS: TOTAL PROTEIN 5.7 gm/dl (6.4-8.2)
[2018-01-13 07:33] VITALS: BP 133/73; PULSE 60; TEMP 36.8; O2SAT 97
[2018-01-13] MEDS: PANTOprazole SOD 40 MG TAB PO SCH (07:58)
--- NOTE | 2018-01-13 08:02 | GASTROENTEROLOGY PROGRESS NOTE ---
DATE: 01/12/2018 GASTROENTEROLOGY INPATIENT PROGRESS NOTE SUBJECTIVE: Chart reviewed, patient examined. Patient did well overnight. She did have some warm sensations following an IV infusion of IV iron earlier this morning. She denied any sweats but felt warm/hot, had no chills and did not develop any shortness of breath, chest pain or rashes. Her hemoglobin after 2 units of packed red blood cells is up to 7.9 from 5.9. White count remained stable at 8 and platelets 351. Celiac markers are pending at this time. MEDICATIONS: Include pantoprazole 40 mg p.o. b.i.d., p.r.n. Zofran. REVIEW OF SYSTEMS: Otherwise noncontributory based on 13-point exam except for mentioned above. OBJECTIVE: VITAL SIGNS: Today, patient's blood pressure 143/73, heart rate 65, respirations 18, 96% on room air. She is afebrile at 36.9. HEENT: Patient's sclerae are anicteric, conjunctivae moist. Oral mucosa moist. HEART: Normal S1, S2. LUNGS: Clear to auscultation without wheezes. ABDOMEN: Soft, flat, nontender, nondistended with good bowel sounds. EXTREMITIES: Without edema. RECTAL: Deferred. IMPRESSION AND PLAN: Patient with a profound microcytic anemia. We will plan for upper endoscopy/small bowel enteroscopy and colonoscopy tomorrow. It has been over 10 years since the latter was performed. Will maintain clear liquids today without red beverages and perform a colonoscopy prep with GoLYTELY starting midafternoon. Tentatively the patient is on the procedure for tomorrow afternoon. For future IV infusion, it may be prudent to reduce the rate perhaps over 30 minutes to an hour to see if this is better tolerated for her. All questions answered. STEFFANY
--- NOTE | 2018-01-13 14:22 | History & Physical Bridge Note ---
H&P Re-Evaluation Bridge Note: I have examined the patient, reviewed the History & Physical and in the interval since the performance of the History & Physical I have noted the following changes of clinical significance: No changes noted
[2018-01-13] MEDS ORDERED: LIDOCAINE HCL 2% 2 ML VIAL (20MG/ML) ONE (16:03)
[2018-01-13] MEDS ORDERED: PROPOFOL IV EMULSION 10 MG/ML 20 ML VIAL ONE (16:03)
--- NOTE | 2018-01-13 16:29 | GI REPORT ---
Patient Name: Marlen Candelaria Procedure Date: 01/13/2018 3:26 PM Date of : 1940 Admit Type: Inpatient Age: 77 Gender: Female Attending MD: Mani Muse MD Procedure: Colonoscopy Providers: Mani Muse MD Referring MD: Blair Bejarano Indications: Unexplained iron deficiency anemia Medicines: Propofol per Anesthesia Complications: No immediate complications. Estimated blood loss: None. Estimated Blood Loss: Estimated blood loss: none. Procedure: Pre-Anesthesia Assessment: - Prior to the procedure, a History and Physical was performed, and patient medications and allergies were reviewed. The patient's tolerance of previous anesthesia was also reviewed. The risks and benefits of the procedure and the sedation options and risks were discussed with the patient. All questions were answered, and informed consent was obtained. Prior Anticoagulants: The patient has taken no previous anticoagulant or antiplatelet agents. ASA Grade Assessment: I - A normal, healthy patient. After reviewing the risks and benefits, the patient was deemed in satisfactory condition to undergo the procedure. After I obtained informed consent, the scope was passed under direct vision. Throughout the procedure, the patient's blood pressure, pulse, and oxygen saturations were monitored continuously. The scope was introduced through the anus and advanced to the terminal ileum, with identification of the appendiceal orifice and IC valve. The colonoscopy was performed without difficulty. The patient tolerated the procedure well. The quality of the bowel preparation was fair. Findings: The perianal and digital rectal examinations were normal. Pertinent negatives include normal sphincter tone, no palpable rectal lesions and no anal lesion or abnormality was detected. The colon (entire examined portion) appeared normal. Non-bleeding internal hemorrhoids were found during retroflexion. The hemorrhoids were mild. The terminal ileum appeared normal. The retroflexed view of the distal rectum and anal verge was normal and showed no anal or rectal abnormalities. Impression: - Preparation of the colon was fair. - The entire examined colon is normal. - Non-bleeding internal hemorrhoids. - The examined portion of the ileum was normal. - The distal rectum and anal verge are normal on retroflexion view. - No specimens collected. Recommendation: - [facility]. - Repeat colonoscopy in 10 years for screening purposes. - Return to referring physician as previously scheduled. - To visualize the small bowel, perform video capsule endoscopy at appointment to be scheduled. MD Mani Ahn MD 01/13/2018 4:29:13 PM This report has been signed electronically. Note Initiated On: 01/13/2018 3:26 PM Number of Addenda: 0 I attest to the content of the Intraoperative Record and orders documented therein, exceptions below {[id number]}
--- NOTE | 2018-01-13 16:47 | GI REPORT ---
Patient Name: Marlen Candelaria Procedure Date: 01/13/2018 3:22 PM Date of : 1940 Admit Type: Inpatient Age: 77 Gender: Female Attending MD: Mani Muse MD Procedure: Upper GI endoscopy Providers: Mani Muse MD Referring MD: Blair Bejarano Indications: Unexplained iron deficiency anemia Medicines: Propofol per Anesthesia Complications: No immediate complications. Estimated blood loss: None. Estimated Blood Loss: Estimated blood loss: none. Procedure: Pre-Anesthesia Assessment: - Prior to the procedure, a History and Physical was performed, and patient medications and allergies were reviewed. The patient's tolerance of previous anesthesia was also reviewed. The risks and benefits of the procedure and the sedation options and risks were discussed with the patient. All questions were answered, and informed consent was obtained. Prior Anticoagulants: The patient has taken no previous anticoagulant or antiplatelet agents. ASA Grade Assessment: I - A normal, healthy patient. After reviewing the risks and benefits, the patient was deemed in satisfactory condition to undergo the procedure. After obtaining informed consent, the endoscope was passed under direct vision. Throughout the procedure, the patient's blood pressure, pulse, and oxygen saturations were monitored continuously. The scope was introduced through the mouth, and advanced to the mid-jejunum. The upper GI endoscopy was accomplished without difficulty. The patient tolerated the procedure well. Findings: The examined esophagus was normal. The Z-line was irregular and was found 40 cm from the incisors. The entire examined stomach was normal. The cardia and gastric fundus were normal on retroflexion. The duodenal bulb was normal. A few 2 mm angiodysplastic lesions without bleeding were found in the second portion of the duodenum. Fulguration to ablate the lesion by bipolar probe was successful. A single 3 mm angiodysplastic lesion without bleeding was found in the jejunum. Impression: - Normal esophagus. - Z-line irregular, 40 cm from the incisors. - Normal stomach. - Normal duodenal bulb. - A few non-bleeding angiodysplastic lesions in the duodenum. Treated with bipolar cautery. - A single non-bleeding angiodysplastic lesion in the jejunum. - No specimens collected. Recommendation: - [facility]. - Perform a colonoscopy today. MD Mani Ahn MD 01/13/2018 4:46:25 PM This report has been signed electronically. Note Initiated On: 01/13/2018 3:22 PM Number of Addenda: 0 I attest to the content of the Intraoperative Record and orders documented therein, exceptions below {[id number]}
--- NOTE | 2018-01-13 16:49 | Anesthesiology Progress Note ---
Anesthesia Post Op Note Date & Time Jan 13, 2018 at 16:49 Vital Signs Pain Intensity: 0 Vital Signs Past 12 Hours Date Time Temp Pulse Resp B/P (MAP) Pulse Ox O2 Delivery O2 Flow Rate FiO2 01/13/18 16:39 58 18 143/66 (91) 97 Room Air 01/13/18 16:29 54 18 91/45 (60) 96 Room Air 54 01/13/18 15:23 36.9 65 16 153/82 (105) 97 Room Air 01/13/18 08:00 Room Air 01/13/18 07:33 36.8 60 18 133/73 (93) 97 Room Air Notes Mental Status: alert / awake / arousable, participated in evaluation Pt Amnestic to Procedure: Yes Nausea / Vomiting: adequately controlled Pain: adequately controlled Airway Patency, RR, SpO2: stable & adequate BP & HR: stable & adequate Hydration State: stable & adequate Anesthetic Complications: no major complications apparent
--- NOTE | 2018-01-13 17:09 | GASTROENTEROLOGY PROGRESS NOTE ---
DATE: 01/13/2018 Patient's hemoglobin is stable at 7.9. Celiac markers are pending. Patient had EGD and push enteroscopy along with colonoscopy today. There were small AVMs noted in the duodenum and in the proximal jejunum, these were cauterized. The colon other than hemorrhoids was otherwise normal to the terminal ileum. Patient received IV iron yesterday. In order to complete the GI workup, I recommend the outpatient capsule endoscopy and will make arrangements for this through our office for this week or early next week. Patient should have her hemoglobin followed serially and await the celiac markers and biopsies from today's study. All questions answered. These results were discussed with the patient and her daughter, Shiloh. From the GI perspective, patient has been clinically stable and can be discharged to home this evening.
[2018-01-13 17:10] VITALS: BP 153/73; PULSE 64; TEMP 36.3; O2SAT 97
[2018-01-13 17:11] VITALS: BP 153/73; PULSE 64; TEMP 36.3; O2SAT 97
--- NOTE | 2018-01-13 17:53 | Discharge Instructions ---
Discharge Instructions Date of Service Jan 13, 2018. Admission Reason for Admission: Severe Anemia Discharge Discharge Diagnosis / Problem: Anemia Discharge Goals Goal(s): Improve function, Diagnostic testing Activity Recommendations Activity Limitations: resume your previous activity . Instructions / Follow-Up Instructions / Follow-Up Ms Candelaria, you are being discharged for your asymptomatic anemia. We admitted you due to your low hemoglobin lab finding from your outpatient provider. We were able to raise your hemoglobin by transfusing you two units of blood and we investigated possible sources of blood loss by performing a colonoscopy and upper endoscopy to look for sources of bleeding, several small lesions were found in the upper gut, but no clear causes were seen. Gastroenterology recommends following up with them for capsule endoscopy study to visualize the small bowel for potential sources. We also strongly recommend following up with your primary care provider within the next few days to recheck your hemoglobin. If there are any signs of new blood loss please report it to your primary care physician and seek medical attention. Current Hospital Diet Patient's current hospital diet: Clear Liquid Diet Discharge Diet Recommended Diet: Regular Diet Procedures Procedures Performed: Colonoscopy, EGD, with Biopsy, Dr Muse Pending Studies Studies pending at discharge: no Medical Emergencies . Who to Call and When: Medical Emergencies: If at any time you feel your situation is an emergency, please call 911 immediately. . Non-Emergent Contact Non-Emergency issues call your: Primary Care Provider . Past History Medical & Surgical History: (1) Severe anemia . "Provider Documentation" section prepared by Mohinder Awan. .
--- NOTE | 2018-01-13 21:22 | Discharge Summary ---
Discharge Summary Date of Service Jan 13, 2018. Discharge Summary Admission Date: Jan 11, 2018 at 16:41 Discharge Date: Jan 13, 2018 Principal Diagnosis: Iron Deficiency Anemia Procedures: Colonoscopy, EGD Dr. Muse Consultations: GI consulted: Per Dr. Muse: Patient's hemoglobin is stable at 7.9. Celiac markers are pending. Patient had EGD and push enteroscopy along with colonoscopy today. There were small AVMs noted in the duodenum and in the proximal jejunum, these were cauterized. The colon other than hemorrhoids was otherwise normal to the terminal ileum. Patient received IV iron yesterday. In order to complete the GI workup, I recommend the outpatient capsule endoscopy and will make arrangements for this through our office for this week or early next week. Patient should have her hemoglobin followed serially and await the celiac markers and biopsies from today's study. All questions answered. These results were discussed with the patient and her daughter, Shiloh. From the GI perspective, patient has been clinically stable and can be discharged to home this evening. Medication Reconciliation Continued Medications: Calcium Carbonate-Vitamin D (Calcium + D) 1 Tab Tab 1 TABS PO DAILY Estradiol Vaginal (Estrace) 0.1 Mg/Gm Cre 1 APPL BT 2XWK Flaxseed (Linseed) (Flax Oil) 1 Oil Oil 1 CAP PO DAILY Multivitamin (Multivitamin) Tab 1 TAB PO DAILY, TAB Ranitidine (Zantac) 150 Mg Tab 1 TAB PO BID for 30 Days, #60 TAB 2 Refills Discontinued Medications: Aspirin (Aspirin Ec) 81 Mg Tab 81 MG PO DAILY Discharge Exam Patient awake and alert after her procedures. She has been up and walking and is currently consuming her dinner. She reports she is feeling very well and ready to return home with her daughter. Review of Systems: Constitutional: No fever, No chills, No sweats, No weight loss, No weakness , No fatigue Respiratory: No cough, No sputum, No shortness of breath, No dyspnea on exertion, No dyspnea at rest Cardiovascular: No chest pain, No palpitations Abdomen: No pain, No nausea, No vomiting, No diarrhea, No constipation, No GI bleeding Musculoskeletal: + calf pain Endocrine: No fatigue Physical Exam: General Appearance: WD/WN, no apparent distress Respiratory/Chest: chest non-tender, lungs clear, normal breath sounds, no respiratory distress, no accessory muscle use Cardiovascular: regular rate, rhythm, no edema, no gallop, no JVD, no murmur , normal peripheral pulses Abdomen / GI: normal bowel sounds, non tender, soft Extremities: normal inspection, no calf tenderness Neurologic/Psychiatric: no motor/sensory deficits, normal mood/affect, oriented x 3 Hospital Course Pt is a 77yo with 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 Severe Iron deficiency Anemia - Pt was transfused 2 units of PRBCs in the ED. H/H improved to 7.9/25.4 today. -Strongly recommend timely outpatient follow up and monitoring. -EGD and Colonoscopy performed on day of discharge. Discovered a few small non bleeding AVM's and mild hemmorhoids. Recommend outpatient follow up with GI for capsule endoscopy. - No active bleeding. Celiac ds panel sent. Vasculitis work up done in feb 2017 - neg. Likely chronic bleeding - last hb in [employer] from 2016 - hb 10 with low end of MCV -IV Iron Sucrose - one dose 300mgs given. 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 Discussed with Dr. Awan and agree with findings and plan as documented in the note. Any exceptions or clarifications are listed here: None Documented By: Blair Cooley feeling ok - wants to go home no new complaints vitals noted nad breathing unlabored no pallor or icterus severe anemia - likely subacute blood loss less likely iron malabsorption -tranfusions and IV iron given -PO iron supplementation and close outpt CBC/ferritin follow up -outpt capsule endoscopy -stable for home Total Time Spent: Greater than 30 minutes (31) This includes examination of the patient, discharge planning, medication reconciliation, and communication with other providers. Discharge Instructions Please refer to the electronic Patient Visit Report (Discharge Instructions) for additional information. Additional Copies To Darline Marte D.O.; Mani Muse M.D.; Blair Cooley D.O. Resident Tracking Resident Involvement: Resident Care Provided Care Provided: Adult [facility]
== END 2018-01-13 19:11 | disposition home or self-care (01) | DRG 812 ==
LOC: C.EDB 14:04 → C.4E 16:41 → ENRESERV 17:07
PROVIDERS: ADMIT Family Medicine; ATTEND Family Medicine
PROC: 0W3P8ZZ Control Bleeding in Gastrointestinal Tract, Via Natural or Artificial Opening Endoscopic (ICD-10-PCS; principal; 2018-01-13 15:06)
PROC: 0DJD8ZZ Inspection of Lower Intestinal Tract, Via Natural or Artificial Opening Endoscopic (ICD-10-PCS; principal; 2018-01-13 15:06)
DX: D50.9 Iron deficiency anemia, unspecified (principal); Q27.33 Arteriovenous malformation of digestive system vessel; Z88.8 Allergy status to other drugs, medicaments and biological substances; Z88.2 Allergy status to sulfonamides; K21.9 Gastro-esophageal reflux disease without esophagitis; L95.0 Livedoid vasculitis; Z83.2 Family history of diseases of the blood and blood-forming organs and certain disorders involving the immune mechanism

== ENCOUNTER 2023-05-27 11:09 | Inpatient (IN) ==
--- NOTE | 2023-05-23 13:21 | Anesthesiology Consultation ---
Date of Service May 23, 2023 Assessment & Plan (1) Encounter for pre-operative examination: - Infectious disease screening: Per assessment on 05/23/23: No known infectious disease contacts or current infectious disease symptoms. No noted recent Covid positive test result. - Cardiovascular visit (01/08/23): "Ulcer of right ankle.. Chronic venous insufficiency.. Reviewed findings of patient's recent vascular testing. No evidence of significant arterial insufficiency. Does have bilateral GSV reflux on ultrasound. With reflux though patient is largely asymptomatic with no real signs of advanced vein disease on exam. Patient's lateral malleolus ulcer has healed and unlikely that noted GSV reflux contributing to recent ulcer. Suspect ulcer primarily related to previously diagnosed livedo vasculopathy. With asymptomatic venous insufficiency do not feel needs any invasive treatment at this time. Can try conservative measures including compression stockings/leg elevation if develops new symptoms. Encouraged regular walking. If were to have more symptoms or lower extremity ulcer more consistent with venous disease in the future venous ablation could be revisited. Can follow-up as needed." - Pulmonary visit (05/10/23): "82-year-old female with a history of stage IV adenocarcinoma of the lung diagnosed in 2020 presenting with a slowly enlarging left upper lobe pulmonary nodule now measuring 1.4 cm. Oncology is requesting a biopsy of this site. I discussed robotic bronchoscopy with my colleague, Dr. Fam, who feels that the lesion is amenable to robotic bronchoscopy." Chart Review Chart Review: Acceptable Risk for Surgery (pending evaluation DOS) and Patient NOT seen in Pre Admission Testing History Surgery Operation Date: 05/27/23 11:30 Proposed Procedures p Robotic Navigational Bronchoscopy - Garcia Fam MD Height/Weight Height: 5 ft 2 in Weight: 50.349 kg Allergies Allergy/AdvReac Type Severity Reaction Status Date / Time azithromycin Allergy Mild Rash Verified 05/23/23 11:51 cephalexin Allergy Mild Rash Verified 05/23/23 11:51 dexamethasone Allergy Mild Rash Verified 05/23/23 11:51 doxycycline Allergy Mild Rash Verified 05/23/23 11:51 fluticasone Allergy Mild Rash Verified 05/23/23 11:51 Penicillins Allergy Mild Rash Verified 05/23/23 11:51 prednisone Allergy Mild Rash Verified 05/23/23 11:51 Sulfa (Sulfonamide Allergy Mild Rash Verified 05/23/23 11:51 Antibiotics) triamcinolone Allergy Mild Rash Verified 05/23/23 11:51 milk AdvReac Mild Nausea Verified 05/23/23 11:51 Banana Allergy Intermediate Swelling Uncoded 05/23/23 11:51 of Lip/Tongue/Throat Dairy Allergy Intermediate Diarrhea Uncoded 05/23/23 11:51 Medications Home Medications Medication Instructions Recorded Confirmed Last Taken ascorbic acid (vitamin C) 500 mg 500 mg PO QAM 11/07/18 05/23/23 08/22/20 12:00 tablet (Vitamin C) calcium carbonate 500 mg calcium 500 mg PO QAM 11/07/18 05/23/23 08/22/20 12:00 (1,250 mg) tablet (Calcium 500) cranberry 400 mg capsule 400 mg PO QAM 11/07/18 05/23/23 08/22/20 12:00 ibuprofen 200 mg tablet (Advil) 200 mg PO QID PRN Pain 11/07/18 05/23/23 11/15/18 multivitamin 1 tab PO QAM 11/07/18 05/23/23 08/22/20 12:00 flaxseed oil 1,000 mg capsule 1,000 mg PO QAM 03/20/19 05/23/23 08/22/20 12:00 ciprofloxacin HCl 250 mg tablet 250 mg PO BID 05/23/23 05/23/23 Unknown Past Medical History Medical History Wound of right ankle Chronic issue since 2016, 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 essentially healed" per dermatology evaluation 12/2022 Lung nodule Lung cancer Dx 2020 Osteoarthritis History of anemia Temporomandibular joint disorder Past Family History Family History Daughter Family history of reaction to anesthesia "Respiratory issues"- no further details known Grandmother (Maternal) Family hx of colon cancer Colorectal cancer Uncle Family hx of colon cancer Grandfather Heart disease Other Cancer Past Surgical History Surgical History History of removal of Port-a-Cath Removal of port right chest wall in office 2020 Port-A-Cath in place Insertion of Access Port Right Internal Jugular 2020 History of bilateral tubal ligation H/O lumbar discectomy History of thoracentesis X 2 (06/2020, 08/17/20)- [facility] History of esophagogastroduodenoscopy (EGD) History of colonoscopy Slow to wake up after anesthesia History of cataract surgery R/L History of wisdom tooth extraction History of tonsillectomy Social History Smoking Status: Never smoker tobacco type: cigarettes Do You Dip or Chew Tobacco: No Hx Alcohol Use: No Hx Substance Use: No substance use type: does not use Lab Results Anesthesia Preop Results Results Anesthesia Widget: WBC 10.05 K/ul (4.8-10.8) 05/17/23 Hgb 11.9 g/dl (12.0-16.0) L 05/17/23 Hct 36.0 % (37.0-47.0) L 05/17/23 Plt 295 K/uL (130-400) 05/17/23 Na 134 mmol/L (136-145) L 04/12/23 K 4.0 mmol/L (3.5-5.1) 04/12/23 Cl 100 mmol/L (98-107) 04/12/23 CO2 28 mmol/L (21-32) 04/12/23 BUN 16 mg/dl (6-23) 04/12/23 Creat 0.81 mg/dl (0.6-1.2) 04/12/23 Glucose Level 90 mg/dl (70-99(Fasting)) 04/12/23 PT 10.8 Seconds (9.0-12.0) 05/17/23 PTT 29 Seconds (21-31) 05/17/23 INR 1.0 (0.9-1.1) 05/17/23 Testing Electrocardiogram Date: 03/19/23 NSR at 69bpm. LAD. Possible septal infarct, age undetermined. NS TWA. No change from 12/24/22 per box coverer hand comparison. Also, septal infarct noted on 06/2020 EKG scanned into Ku. Other Testing Chest CT Date: 05/17/23 1. Emphysema without acute intrathoracic abnormality. 2. Stable suspicious, spiculated and irregular solid nodule within the apical posterior segment left upper lobe measuring 1.5 cm. A primary bronchogenic neoplasm remains the diagnosis of exclusion. 3. No lymphadenopathy.
[~2023-05-27 11:09] MED LIST changes: -CRAN1CAP15 PO; -HYDR25CA PO; +LR 15ML/HR IV SCH
[2023-05-27] MEDS ORDERED: ATROPINE SULFATE 0.1 MG/ML 10ML SYR IV PRN (12:22)
[2023-05-27] MEDS ORDERED: fentaNYL citrate PF 100 MCG/2 ML VIAL IV PRN (12:22)
[2023-05-27] MEDS ORDERED: ONDANSETRON INJ 2 MG/ML 2 ML VIAL IV PRN (12:22)
[2023-05-27] MEDS ORDERED: ePHEDrine sulfate 50 MG/ML AMP IV PRN (12:22)
[2023-05-27] MEDS ORDERED: fentaNYL citrate PF 100 MCG/2 ML VIAL ONE (12:41)
[2023-05-27] MEDS ORDERED: LIDOCAINE 2% 2 ML VIAL/AMP(20MG/ML) INFIL ONE (12:41)
[2023-05-27] MEDS ORDERED: SUGAMMADEX SODIUM 200 MG/2 ML VIAL IV ONE (12:41)
[2023-05-27] MEDS ORDERED: ONDANSETRON INJ 2 MG/ML 2 ML VIAL ONE (12:41)
[2023-05-27] MEDS ORDERED: PROPOFOL IV EMULSION 10 MG/ML 20 ML VIAL IV ONE (12:41)
[2023-05-27] MEDS ORDERED: ROCURONIUM BROMIDE 10 MG/ML 5 ML VIAL IV ONE ×2 (12:41→14:20)
[2023-05-27] MEDS ORDERED: DEXAMETHASONE SOD INJ 4 MG/ML VIAL ONE (12:41)
--- NOTE | 2023-05-27 12:43 | History & Physical Report ---
Date of Service May 27, 2023 Assessment & Plan (1) Lung nodule: Plan Impression: 83-year-old female with a history of stage IV adenocarcinoma of the lung now with enlarging left upper lobe pulmonary nodule. She is been seen by oncology and they are requesting a biopsy of the site to confirm whether or not this is adenocarcinoma or potential alternative malignancy. Images were independently reviewed and the lesion is amenable to robotic navigational bronchoscopy. With the patient he is agreeable to proceed. Recommendations: 1. Pulmonary nodule: Risks and benefits of electromagnetic navigational robotic bronchoscopy were discussed with the patient as well as with her daughter. Questions were answered to the best my ability. We discussed complications including bleeding, pneumothorax, and need for additional invasive procedures. She expressed understanding and is in agreement to proceed. Will proceed with the proposed procedure today. 2. Patient and daughter were advised that pathology should be available within 3 to 5 days. Will contact them as well as forward the results to medical oncology and Dr. Burks once they are available to review. Additional recommendations will be based on results of pathology History of Present Illness Primary Care Provider: Darline Marte DO Patient presents today for evaluation management of a pulmonary nodule. History is obtained from discussion with the patient and her daughter as well as review the electronic medical record. The patient is an 83-year-old female with a history of stage IV adenocarcinoma status post therapy with medical oncology. She has been followed and found to have an enlarging left upper lobe pulmonary nodule. There was concern about this being associated with her primary malignancy (adenocarcinoma) versus an alternative malignancy. Biopsy was requested. Patient is not reporting any significant new respiratory complaints. She denies shortness of breath, cough, fevers, chills, or night sweats. Her appetite is good and her weight remains stable. Medical history review of systems is unchanged from Dr. Burks's note 05/10/2020. Allergies Allergy/AdvReac Type Severity Reaction Status Date / Time azithromycin Allergy Mild Rash Verified 05/27/23 12:09 cephalexin Allergy Mild Rash Verified 05/27/23 12:09 dexamethasone Allergy Mild Rash Verified 05/27/23 12:09 doxycycline Allergy Mild Rash Verified 05/27/23 12:09 fluticasone Allergy Mild Rash Verified 05/27/23 12:09 Penicillins Allergy Mild Rash Verified 05/27/23 12:09 prednisone Allergy Mild Rash Verified 05/27/23 12:09 Sulfa (Sulfonamide Allergy Mild Rash Verified 05/27/23 12:09 Antibiotics) triamcinolone Allergy Mild Rash Verified 05/27/23 12:09 milk AdvReac Mild Nausea Verified 05/27/23 12:09 Banana Allergy Intermediate Swelling Uncoded 05/27/23 12:09 of Lip/Tongue/Throat Dairy Allergy Intermediate Diarrhea Uncoded 05/27/23 12:09 Home Medications Medication Instructions Recorded Confirmed Type ascorbic acid (vitamin C) 500 mg 500 mg PO QAM 11/07/18 05/23/23 History tablet (Vitamin C) calcium carbonate 500 mg calcium 500 mg PO QAM 11/07/18 05/23/23 History (1,250 mg) tablet (Calcium 500) cranberry 400 mg capsule 400 mg PO QAM 11/07/18 05/23/23 History ibuprofen 200 mg tablet (Advil) 200 mg PO QID PRN Pain 11/07/18 05/23/23 History multivitamin 1 tab PO QAM 11/07/18 05/23/23 History flaxseed oil 1,000 mg capsule 1,000 mg PO QAM 03/20/19 05/23/23 History Past Med/Surg History Medical History Wound of right ankle Chronic issue since 2016, 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 essentially healed" per dermatology evaluation 12/2022 Lung nodule Lung cancer Dx 2020 Osteoarthritis History of anemia Temporomandibular joint disorder Surgical History History of removal of Port-a-Cath Removal of port right chest wall in office 2020 Port-A-Cath in place Insertion of Access Port Right Internal Jugular 2020 History of bilateral tubal ligation H/O lumbar discectomy History of thoracentesis X 2 (06/2020, 08/17/20)- Pascale STONE History of esophagogastroduodenoscopy (EGD) History of colonoscopy Slow to wake up after anesthesia History of cataract surgery R/L History of wisdom tooth extraction History of tonsillectomy Family History Daughter Family history of reaction to anesthesia "Respiratory issues"- no further details known Grandmother (Maternal) Family hx of colon cancer Colorectal cancer Uncle Family hx of colon cancer Grandfather Heart disease Other Cancer Social History Smoking Status: Never smoker packs per day: 1; Second Hand Exposure: Yes (hx); Do You Dip or Chew Tobacco: No; Hx Alcohol Use: No Hx Substance Use: No Preferred Language: Palauan Communication Ability: Effective Visual Impairment: No Limitations Hearing Ability: Normal Broth Setter Required: No Beliefs That Will Affect Care: None marital status: / Current Living Situation: Alone current occupational status: retired Feels Safe at Home: Yes Safety Concerns: Feels Safe At This Time Diet: regular caffeine: No during the past year weight has: remained stable Assistive Devices: None Review of Systems All systems reviewed & are unremarkable except as noted in Subjective Physical Exam Constitutional: WD/WN, vitals as above Neck: trachea midline, no thyromegaly Respiratory: normal respiratory effort, lungs clear to auscultation Cardiovascular: RRR, no murmur, no edema Gastrointestinal (Abdomen): normal bowel sounds, soft, nontender, no hepatosplenomegaly Musculoskeletal: Extremities: extremities normal to inspection Skin: no rashes, warm and dry Neurologic: Nonfocal exam Lymphatic: no cervical lymphadenopathy Results & Data Vital Signs (Past 12 Hours) Vital Signs Temp Pulse Resp BP Pulse Ox O2 Del Method 05/27/23 12:27 36.6 C 69 20 141/97 H 94 Room Air Diagnostic Findings CT chest diagnostic wo con 05/17/2023: Independently reviewed CT DOSE: 231.4 mGy.cm CLINICAL HISTORY: 83 years-old Female with R91.1 - Solitary pulmonary nodule. TECHNIQUE: Multiaxial CT images of the chest were performed without contrast. A dose lowering technique was utilized adhering to the principles of ALARA. COMPARISON: 04/10/2023, January 22, 2023, PET CT January 09, 2021. FINDINGS: Unremarkable thyroid. No lymphadenopathy. The heart is normal in size without pericardial effusion. Moderate coronary artery calcifications. Atherosclerosis of the thoracic aorta. No pneumothorax, pleural effusion or pulmonary edema. Moderate to severe pulmonary emphysema. Mild subsegmental linear consolidation of the right middle lobe and lingula which is similar to prior suggestive of atelectasis/scarring. Lobulated particularly dated and irregular solid nodule within the apical posterior segment left upper lobe on image 35 series 4 measures 1.5 x 1.0 x 1.3 cm which is generally stable from the prior study. No new or enlarging pulmonary nodules. Central airways are patent. No acute upper abdominal abnormality. Unremarkable soft tissues. No acute fracture. IMPRESSION: 1. Emphysema without acute intrathoracic abnormality. 2. Stable suspicious, spiculated and irregular solid nodule within the apical posterior segment left upper lobe measuring 1.5 cm. A primary bronchogenic neoplasm remains the diagnosis of exclusion. 3. No lymphadenopathy.
--- NOTE | 2023-05-27 14:43 | Procedure Note ---
Procedure Note: Bronchoscopy Procedure Procedure: Fiberoptic bronchoscopy Endobronchial ultrasound evaluation during bronchoscopy Electromagnetic navigational bronchoscopy with transbronchial biopsies under fluoroscopic guidance. Electromagnetic navigational bronchoscopy with transbronchial brushings under fluoroscopic guidance Electromagnetic navigational bronchoscopy with transbronchial fine-needle aspiration under fluoroscopic guidance Provider: Garcia Fam MD Estimated blood loss: 5 mL Consent: Signed by patient and timeout verified prior to procedure. Procedure: Patient was brought to the OR suite. Consent was verified. Appropriate radiographic studies had been reviewed prior to the procedure. General anesthesia was initiated by the anesthesia team and the patient was intubated with an 8.0 endotracheal tube. After initiation of general anesthesia, the fiberoptic scope was advanced through the existing endotracheal tube via the adapter. The tube was sounded. It was withdrawn to approximately 5 or 6 cm above the roe and secured in place. A systematic inspection of the airways was then conducted. The right tracheobronchial tree was normal in anatomic configuration with normal mucosa. Left tracheobronchial tree also demonstrated a normal anatomic configuration with normal mucosa. No endobronchial lesions were identified. The fiberoptic scope was then removed. The robotic adapter was then secured to the endotracheal tube and secured within the patient's secure amount. The patient had previously been placed on a bed with an electromagnetic navigation field and a tilt table in place. The robot was advanced to the head of the bed and the robotic arm was docked to the patient securing mechanism. Robot arm was withdrawn in normal fashion and the scope attached with the antibuckling device. The robotic scope was then maneuvered into the endotracheal tube where controller registration took place. Once that was confirmed the scope was advanced to the main roe and verified in good position. Navigational registration was then conducted without difficulty. At this point in time the patient developed a significant cuff leak and lost end-tidal CO2 monitoring. There was concerned about possible tube migration. The robot was undocked from the endotracheal tube and a fiberoptic scope advanced through the existing endotracheal tube. It was confirmed to have migrated outside of the airway and the cuff had blown. That endotracheal tube was removed. A new 8 oh endotracheal tube was loaded over the fiberoptic scope. This was advanced through the oropharynx. I was able to intubate the trachea with the scope and using the scope as a guide, was able to advance the 8 oh e ndotracheal tube into the airway. It was secured in place approximately 4 cm above the roe. End-tidal CO2 returned and the patient tolerated the extubation and reintubation well without any oxygen desaturations or hemodynamic instability. The newly placed endotracheal tube was then reattached to the docking mechanism and the robot redocked. Registration was recompleted. Once registration was completed, the robotic bronchoscope was used to navigate to the lesion in question. Once the scope was approximately 10-15 millimeters from the lesion, a fluoroscopic tomographic spin was conducted with reconstruction of images. The lesion was able to be verified on the tomogram. It was marked and additional navigation was conducted under direct fluoroscopic guidance with augmented fluoroscopy. Once the scope was appropriately angled towards the lesion, under direct fluoroscopic guidance, biopsy forceps were advanced into the lesion. 10 biopsies were taken under fluoroscopic guidance. The biopsy forceps were confirmed to be in the lesion on 3 separate planes. Touch preps were performed but only demonstrated benign respiratory epithelium. Brushings x 2 were conducted again under fluoroscopic guidance with the brush being confirmed in 3 separate planes to be within the lesion. FNA x 6 was also performed confirming in 3 planes that the needle was within the lesion. Given that we had confirmed tool and lesion on multiple occasions and with multiple tools, it was felt at that time the additional biopsies would be unlikely to improve yield. A mini BAL was performed with instillation of 35 cc of saline with the saline being withdrawn as the scope was actively withdrawn. Return was slightly bloody. The robot was then undocked and the scope removed. The endobronchial ultrasound was then advanced through the adapter via the existing endotracheal tube. A survey of mediastinal lymph node stations was conducted including the 4R, 4L, 7, 10/11 R, and 10/11 L stations. No significant adenopathy was identified. The scope was then withdrawn to the tip of the endotracheal tube and hemostasis was confirmed. Scope was removed from the airway. The patient was turned over to anesthesia for extubation and returned to the PACU having tolerated the procedure well without complication. Impression: 1. Normal inspection bronchoscopy. 2. Electromagnetic robotic navigation to a left upper lobe pulmonary nodule. Status post biopsy/FNA/brushings and BAL under fluoroscopic guidance. Await final pathology. 3. No significant adenopathy identified under endobronchial ultrasound. [facility] [place] Procedure Codes (Charges) Pulmonary/Thoracic Procedure 1: Pulmonary and Thoracic: 89381 Navigational Bronchoscopy Procedure 2: Pulmonary and Thoracic: 47762 Bronchoscopy w/ needle bx Procedure 3: Pulmonary and Thoracic: 80696 Bronchoscopy w/ transbronchial lung bx Procedure 4: Pulmonary and Thoracic: 69356 Bronchoscopy, w/EBUS add on Procedure 5: Pulmonary and Thoracic: 21558 Dx bronchoscopy/brush
--- NOTE | 2023-05-27 14:59 | XRay Report ---
XR chest 1V portable CLINICAL HISTORY: Post Bronchoscopy COMPARISON STUDY: Chest CT May 17, 2023. FINDINGS: A small to moderate left apical pneumothorax is noted. Superior pleural separation is 1.6 m m. Left upper lobe nodule shown on CT of May 17, 2023 is again noted. There is no pleural effusio n. Elevation of the right hemidiaphragm is unchanged. Cardiomediastinal silhouette is stable. IMPRESSION: Small moderate left apical pneumothorax. This finding will be called/faxed to the [facility] provider at time of dictation. ACT 112: Negative or not required by law. Electronically signed by: Delvin Davies M.D. 05/27/2023 2:57 PM
--- NOTE | 2023-05-27 15:18 | Anesthesiology Progress Note ---
Date of Service May 27, 2023 Anesthesia Post Procedure Vital Signs Vital Signs: Temp Pulse Pulse Resp BP Pulse Ox O2 Del Method 05/27/23 15:05 69 20 158/76 H 93 Room Air 05/27/23 14:55 69 15 151/92 H 97 Oxymask 05/27/23 14:45 69 14 157/75 H 99 Oxymask 05/27/23 14:36 36.1 C L 72 16 152/77 H 97 Oxymask 05/27/23 13:30 Mechanical Vent 05/27/23 12:27 36.6 C 69 20 141/97 H 94 Room Air O2 Flow Rate 05/27/23 15:05 05/27/23 14:55 7 05/27/23 14:45 7 05/27/23 14:36 7 05/27/23 13:30 05/27/23 12:27 Pain Intensity Chest: Pain Intensity: 4 Transfer of Care Handoff Completed per policy Notes Mental Status: alert / awake / arousable and participated in evaluation Patient Amnestic to Procedure: Yes Nausea / Vomiting: adequately controlled Pain: adequately controlled Airway Patency, RR, SpO2: stable & adequate BP & HR: stable & adequate Hydration State: stable & adequate Anesthetic Complications: no major complications apparent and Pt Satisfied with anesthetic care
--- OUTSIDE RECORDS SUMMARY | 2023-05-27 16:25 | External Medical Summary | Continuity of Care Document ---
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 Cellulitis(Discharge Diagnosis) - 05/22/23 Right hip pain(Discharge Diagnosis) - 05/22/23 Lung cancer(Discharge Diagnosis) - 05/22/23 Discharge Disposition: Home or Self Care Attending Physician: DO Marte Kristen M Referring Physician: DO Marte Kristen M Allergies, Adverse Reactions, Alerts Substance Reaction Severity Status doxycycline unknown Active sulfa drugs unknown Active Azmacort unknown Active clindamycin rash Active azithromycin unknown Active cephalexin unknown Active predniSONE Rash Active Kenalog unknown Active Flonase tingling all over Active Decadron unknown Active PCN (penicillin) rash breathing problems Active milk products Allergy to milk prod ucts feels sick in stomach Active bananas unknown Active Assessment and Plan Extracted from: Title:Office Visit Note Author:DO Marte Kriste n M Date:05/22/23 1.Livedoid vasculitis Chronic condition, stable Goal:Resolution Data:unique tests ordered: _ Plan: _see #2 Pt scheduled for possible radiation 2.Cellulitis Chronic condition, stable Goal:Resolution Data:unique tests ordered: _ Plan: _Cipro 250 po BID--for 10 days--pt request. I told her this can increase your risk for tendon issues including rupture and pain 3.Right hip pain Chronic condition, stable Goal:Resolution Data:unique tests ordered: _ Plan: _right hip xray to check for metastasis 4.Lung cancer Chronic condition, stable Goal:Resolution Data:unique tests ordered: _ Plan: _s/p keytruda--bronch scheduled--considering radiation treatment Immunizations Given and Recorded Vaccine Date Status Refusal Reason pneumococcal 13-valent vaccine 04/15/15 Given tetanus/diphtheria/pertuss, acel (Tdap) 06/15/12 R ecorded zoster vaccine live 11/18/07 Recorded pneumococcal 23-valent vaccine 06/14/06 Recorded tetanus toxoids-diphtheria, Td (Adult) 06/10/02 Re corded Medications Albuterol (Eqv-ProAir HFA) 90 mcg/inh inhalation aerosol See Instructions, Disp# 8.5 g, Refills: 6, INHALE 2 PUFFS BY MOUTH EVERY 6 HOURS NEEDED FOR SHORTNESS OF BREATH OR WHEEZING, Pharmacy: [facility] Start Date: 01/14/23 Status: Ordered Calcium 600+D Start: 03/02/11 15:09:00, 1 tabs, PO, Daily Start Date: 03/02/11 Status: Ordered Cipro 250 mg oral tablet Start: 05/22/23 11:37:00 EST, 1 tab, PO, q12h, Disp# 20 tab, Refills: 0, Pharmacy: [facility] Start Date: 05/22/23 Stop Date: 06/01/23 Status: Ordered cranberry oral capsule Start: 03/02/11 15:10:00, 1 cap, PO, Daily Start Date: 03/02/11 Status: Ordered Flax Oil oral capsule Start: 03/02/11 15:09:00, 1 cap, PO, Daily Start Date: 03/02/11 Status: Ordered ibuprofen 600 mg oral tablet Start: 09/26/22 14:32:00 EDT, 1 tab, PO, tid, Disp# 90 tab, Refills: 3, PRN: as needed for arthritis, Pharmacy: [facility] Start Date: 09/26/22 Status: Ordered multivitamin Start: 03/02/11 15:09:00, 1 tab, PO, Daily, tab Start Date: 03/02/11 Status: Ordered mupirocin 2% topical ointment Start: 09/13/22 13:24:00 EDT, 1 appl, topical, bid, Disp# 22 g, Refills: 1, 2x a day to right ankleand at night to belly button and in nostrils., Pharmacy: [facility] Start Date: 09/13/22 Status: Ordered nystatin 100,000 units/g topical cream Start: 03/19/23 13:21:00 EDT, See Instructions, Disp# 30 g, Refills: 0, apply QHS, Pharmacy: [facility] Start Date: 03/19/23 Status: Ordered Pepcid 20 mg oral tablet Start: 06/18/22 12:09:00 EST, 1 tab, PO, Daily, Disp# 90 tab, Refills: 3, Pharmacy: [facility] Start Date: 06/18/22 Status: Ordered triamcinolone 0.1% topical cream Start: 09/10/22 15:18:00 EDT, 1 appl, topical, bid, Disp# 30 g, Refills: 2, to AA on right ankle and AA on right ear, Pharmacy: [facility] Start Date: 09/10/22 Status: Ordered Mental Status 05/22/23 Barriers to Learning one year None evide nt Mandatory Health Literacy Documentation Yes Health Literacy Communication Barriers N ever Primary Language Mohawk Problem List Condition Confirmation Course Effective Dates Status H ealth Status Informant Pain in right ankle Confirmed Active Atherosclerosis of aorta 1 Confirmed Active Carotidynia Confirmed Active Cellulitis Confirmed Active Centrilobular emphysema 2 Confirmed Active MRSA (methicillin resistant staph aureus) culture positive 3 Confirmed 09/11/22 Active Nail disorder Confirmed Active Shortness of breath Confirmed Active Breath shortness Confirmed Active Ear discharge of right ear Confirmed Active Rash Confirmed Active Hamstring tightness Confirmed Active Reflux esophagitis Confirmed Active Hip pain, bilateral Confirmed Active Right hip pain Confirmed Active Iron deficiency Confirmed Active Laryngitis Confirmed Active Livedoid vasculitis Confirmed Active Right lumbar radiculopathy Confirmed Active Lung cancer Confirmed Active Memory disorder Confirmed Active Nail fungus Confirmed Active Right elbow pain Confirmed Active Leg pain Confirmed Active Health care maintenance Confirmed Active Medicare annual wellness visit, initial Confirmed Active Breast cancer screening by mammogram Confirmed Active Itching of vulva Confirmed Active Rosacea Confirmed Active Seborrheic keratosis Confirmed Active Skin lesion Confirmed Active Spinal stenosis of lumbar region with radiculopathy Confirmed Active Strain of calf muscle Confirmed Active Situational stress Confirmed Active Vascular disorder Confirmed Active Viral URI Confirmed Active 1See outside rad/study 07/17/20 07/08/20 CT chest without contrast FINDINGS: HEART: Trace pericardia! fluid or thickening suggested. Aortic root and possfble left ventricular calcifications VESSELS: Atherosclerotic changes In the aorta and coronary arteries. 2See outside rad/study 07/17/20 07/08/20 CT chest without contrast IMPRESSION: Centrilobular emphysema 3WOUND RIGHT LATERAL MALEOLUS SWAB, 1+ STAPHYLOCOCCUS AUREUS (RESISTANT TO OXACILLIN), Date of Service: September 11, 2022 07:19 EDT Diagnosis Diagnosis Type Effective Dates Health Status Clinical Service Informant Livedoid vasculitis Discharge Diagnosis 05/22/23 Right hip pain Discharge Diagnosis 05/22/23 Lung cancer Discharge Diagnosis 05/22/23 Cellulitis Discharge Diagnosis 05/22/23 Procedures Procedure Date Related Diagnosis Body Site Status Chest X-ray 1 10/26/22 Completed Thoracentesis 2 08/16/20 Completed Surgery 3 2020 Completed Mammogram 4 10/26/19 Completed Femur X-ray 5 08/24/19 Completed Hip X-ray 6 08/07/19 Completed Dental operation, implant 2019 Completed Epidural steroid injection 03/2019 Completed Mammogram 7 08/25/18 Completed Ultrasound 8 05/13/18 Completed colonoscopy 9 01/13/18 Completed Upper GI endoscopy 10, 11, 12 01/13/18 Completed Mammogram 13 08/21/17 Completed Hand X-ray 14 02/19/17 Completed Punch biopsy of skin lesion 15 07/02/16 Completed Mammogram - screening 16 08/06/14 Completed DEXA - Dual energy X-ray bj ton absorptiometry 04/13/14 Completed Papanicolaou smear 17 12/08/13 Com pleted Tonsillectomy with adenoidectomy Completed tubal Completed wisdom teeth removal Comp leted X-ray 18 Completed X-ray 19 Completed 1Impression: No acute cardiopulmonary findingd. Emphysema. No consolidation 2L thoracentesis pleural effusion 3nerve issue/back/leg 4IMPRESSION: ACR BI-RADS 1: NEGATIVE There is no mammographic evidence of malignancy. A 1 year screening mammogram of recommmended. FINDINGS: There are scattered bilateral benign-appearing calcifications in the breast. No suspicious mass, architectural distortion or cluster of suspicious microcalcifications is seen. 5IMPRESSION: 1) No acute fracture within the right femur 2) Minimal osteoarthritis of the right hip 6IMPRESSION: 1) No acute fracture within the pelvis or hips 2) Bilateral sacral fractures shown on CT of July 02, 2019 not well visualized given technique 7No mammographic evidence of malignancy. 1 year screening recommended, 8There is no sonographic evidence of DVT in the right lower extremity. 9Preparation of the colon was fair. The entire examined colon is normal. Non-bleeding internal hemorrhoids. The examined portion of the ileum was normal. The distal rectum and anal verge are normal on retroflexion view. No specimens collected. Repeat in 10 years. 10Normal esophagus. Z-line irregular, 40 cm from the incisors. Normal stomach. Normal duodenal bulb. A few non-bleeding angiodysplastic lesions in the duodenum. Treated with biporl cautery. A single non-bleeding angiodysplastic lesion in the jejunum. No specimens collected. 11F/U with video capsule 12Pathology: Duodenum, biopsy: No diagnostic abnormailty 13wnl 14Osteoarthritis within the bilateral thumbs. No erosions identified. Diffuse osteopenia 15left lateral malleolus 16No mamographic evidence of malignancy. 1 year screening mammogram is recommended. 17WNL 18XR lumbar spine 2-3V IMPRESSION: Degenerative change. Scoliosis. No acute process. 19X-ray of pelvis 1-2V routine IMPRESSION: Negative study Vital Signs Most recent to oldest [Reference Range]: 1 Temperature [36.5-37.9 DegC] 36.6 DegC (05/22/23 11:19 AM) Blood Pressure 120/72mmHg (05/22/23 11:19 AM) Cuff Pulse Pressure 48 mmHg (05/22/23 11:19 AM) Social History Social History Type Response Tobacco Former smoker, Cigar ettes 1 Smoking Status Never smoked cigaret deborah Sex Female 1Quit smoking about 20 years ago. [facility] Outpt Note * DO Marte Kristen M: PERFORM Event Display: [facility] Outpt Note Authored Date: Chief Complaint Pt here for Ankle issues History of Present Illness Pt presents to discuss her infected ankle. She states she is worried the infection will go through her entire body. Pt states she has right hip pain that she describes as nerve pain that sometimes shoots down. the pain radiates down past the knee. Assessment/Plan 1.Livedoid vasculitis Chronic condition, stable Goal:Resolution Data:unique tests ordered: _ Plan: _see #2 Pt scheduled for possible radiation 2.Cellulitis Chronic condition, stable Goal:Resolution Data:unique tests ordered: _ Plan: _Cipro 250 po BID--for 10 days--pt request. I told her this can increase your risk for tendon issues including rupture and pain 3.Right hip pain Chronic condition, stable Goal:Resolution Data:unique tests ordered: _ Plan: _right hip xray to check for metastasis 4.Lung cancer Chronic condition, stable Goal:Resolution Data:unique tests ordered: _ Plan: _s/p keytruda--bronch scheduled--considering radiation treatment Attestation I spent4 mintime in previsit planning including prepping note and chart review . I spent24 time in face to face interaction with patient concerning the issues that brought them in today. I spent4 min time in post visit planning including finishing note and depart process Total time spent today on patient visit32 min Problem List/Past Medical History Ongoing Atherosclerosis of aorta Breast cancer screening by mammogram Breath shortness Carotidynia Cellulitis Centrilobular emphysema Ear discharge of right ear Hamstring tightness Health care maintenance Hip pain, bilateral Iron deficiency Itching of vulva Laryngitis Leg pain Livedoid vasculitis Lung cancer Medicare annual wellness visit, initial Memory disorder MRSA (methicillin resistant staph aureus) culture positive Nail disorder Nail fungus Pain in right ankle Rash Reflux esophagitis Right elbow pain Right lumbar radiculopathy Rosacea Seborrheic keratosis Shortness of breath Situational stress Skin lesion Spinal stenosis of lumbar region with radiculopathy Strain of calf muscle Vascular disorder Viral URI Historical Abdominal bloating ANEMIA, UNSPECIFIED Arthritis of carpometacarpal joint Arthritis of knee Cerumen impaction Chronic GERD Contact dermatitis Ganglion cyst Gynecologic examination H/O abdominal pain Hypertension screen Inflamed seborrheic keratosis Left ankle pain Mass of finger Medicare annual wellness visit, subsequent Milia Nausea Optic nerve disorder Pain of left thumb Papanicolaou smear ROUTINE GENERAL MEDICAL EXAMINATION AT A HEALTH CARE FACILITY Screening for hyperlipidemia Vaginal atrophy Vaginitis Weight disorder Weight gain Procedure/Surgical History Chest X-ray (10/26/2022)Thoracentesis (08/16/2020)Surgery (2020)Mammogram (10/26/2019)Femur X-ray (08/24/2019)Hip X-ray (08/07/2019)Dental operation, implant (2019)Epidural steroid injection (03/2019)Mammogram (08/25/2018)Ultrasound (05/13/2018)colonoscopy (01/13/2018)Upper GI endoscopy (01/13/2018)Mammogram (08/21/2017)Hand X-ray (02/19/2017)Punch biopsy of skin lesion (07/02/2016)Mammogram - screening (08/06/2014)DEXA - Dual energy X-ray photon absorptiometry (04/13/2014)Papanicolaou smear (12/08/2013)tubalwisdom teeth removalTonsillectomy with [id number] Medications albuterol(Albuterol (Eqv-ProAir HFA) 90 mcg/inh inhalation aerosol), See Instructions, 6 refills calcium and vitamin D combination(Calcium 600+D), 1 tabs, PO, Daily cranberry(cranberry oral capsule), 1 cap, PO, Daily famotidine(Pepcid 20 mg oral tablet), 20 mg= 1 tab, PO, Daily, 3 refills flax(Flax Oil oral capsule), 1 cap, PO, Daily ibuprofen(ibuprofen 600 mg oral tablet), 600 mg= 1 tab, PO, tid, PRN, 3 refills levoFLOXacin(Levaquin 250 mg oral tablet), 250 mg= 1 tab, PO, q24h multivitamin, 1 tab, PO, Daily mupirocin topical(mupirocin 2% topical ointment), 1 appl, topical, bid, 1 refills nystatin topical(nystatin 100,000 units/g topical cream), See Instructions triamcinolone topical(triamcinolone 0.1% topical cream), 1 appl, topical, bid, 2 refills Allergies Azmacortunknown Decadronunknown Flonasetingling all over Kenalogunknown PCN (penicillin)rash, breathing problems azithromycinunknown bananasunknown cephalexinunknown clindamycinrash doxycyclineunknown milk productsAllergy to milk products, feels sick in stomach predniSONERash sulfa drugsunknown Social History Smoking Status Never smoked cigarettes Alcohol - Denies Alcohol Use Exercise - Occasional exercise Tobacco - Denies Tobacco Use Use:Former smoker Type:Cigarettes - Comments: Quit smoking about 20 years ago. Family History Cervical cancer: Maternal Aunt (Dx at 99 years). Heart disease: Unknown. Pacemaker: Mother. Stroke: Unknown. Health Status Family Member(s) Family Member(s) Relationship: Maternal Aunt, Age: 99 Years, Cause: Cervical cancer Immunizations Vaccine Date Status pneumococcal 13-valent vaccine 04/15/2015 Given tetanus/diphtheria/pertuss, acel (Tdap) 06/15/2012 Recorded zoster vaccine live 11/18/2007 Recorded pneumococcal 23-valent vaccine 06/14/2006 Recorded tetanus toxoids-diphtheria, Td (Adult) 2002 Recorded Recommendations Health Maintenance Pending(in the next year) OverDue Adult Influenza Vaccine due12/08/22and every 1year Medicare Annual Wellness Visit due12/25/22and every 1year Due Adult COVID-19 Vaccination due05/22/23Unknown Frequency Adult Tdap/Td Vaccine due05/22/23Unknown Frequency Shingles Vaccine due05/22/23One-time only Due In Future Body Mass Index not due until03/19/24and every 366day Satisfied(in the past 1 year) Satisfied Body Mass Index on12/24/22.Satisfied by EMELYN Graff Angela Breast Cancer Screening on05/23/22.Satisfied by MARGARITO Pittman Keely Electronic Signature on File Electronically Reviewed/Signed by: Darline Marte DO Author Signature Dt/Tm:05/22/2023 11:57 AM Department of Family Medicine [facility] Patient Care team information Care Team Personnel Name: MD Daugherty Jonathan D Position: Physician - Family Med Member Role: Lifetime Relationship Address: Address: [facility] [place] [address] Name: DO Marte Kristen M Position: Physician - Family Med Member Role: Primary Care Provider Address: Address: [address] [place] [address] [place] Name: JUSTIN Stone Lynn Position: Physician 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
[2023-05-27] MEDS ORDERED: ALUMINUM/MAGNESIUM SUSP 30 ML UDC PO PRN (17:20)
[2023-05-27] MEDS ORDERED: ACETAMINOPHEN 325 MG TAB PO PRN (17:20)
--- NOTE | 2023-05-27 21:35 | XRay Report ---
XR chest 1V portable CLINICAL HISTORY: ptx TECHNIQUE: Single frontal radiograph of the chest was obtained. Comparison: Comparison is made to chest radiograph 07/28/2022 FINDINGS: No lines and tubes are seen. The cardiomediastinal silhouette is normal. The lungs are clear. Left ap ical pneumothorax has slightly enlarged from prior exam, measuring 18 mm compared to 16 mm in prior e xam. IMPRESSION: Minimal enlargement of previously noted left pneumothorax. ACT 112: Negative or not required by law. Electronically signed by: Dong Young M.D. 05/27/2023 9:33 PM
--- NOTE | 2023-05-28 07:17 | XRay Report ---
XR chest 1V portable HISTORY: Follow up left pneumothorax. COMPARISON: Chest 05/27/2023. FINDINGS: Interval increase in size in the now moderate left pneumothorax with a maximal pleural gap at the left lung base measuring 3.7 cm. No definite midline shift. The heart remains mildly enlarged. There is a tortuous thoracic aorta. Mild chronic interstitial thickening persists. Left basilar dens ities favor atelectasis. The right lung is essentially clear. No evidence for pulmonary edema. IMPRESSION: Interval increase in size in the now moderate left pneumothorax. Chest tube should be considered give n the size of the pneumothorax. This report was communicated with Dr. Fam at 7:15 AM on 05/28/2023. ACT 112: Negative or not required by law. Electronically signed by: Stevan Walters M.D. 05/28/2023 7:16 AM
[2023-05-28] MEDS ORDERED: MoRPHine SULFATE 2 MG/ML CARP IV STA (10:00)
[2023-05-28] MEDS ORDERED: MoRPHine SULFATE 2 MG/ML CARP ONE (10:01)
--- NOTE | 2023-05-28 10:37 | Procedure Note ---
Procedure Note Date of Service May 28, 2023 Note Left apical pneumothorax CATHETER PLACEMENT: Procedure: Left apical pneumothorax catheter Chest Tube Placement Indication: Tension pneumothorax Anesthesia: 10 mL lidocaine 1% Written consent was obtained and placed on the chart. Timeout was done prior to the procedure. Prior to procedure, chest x-ray films were reviewed by myself and demonstrated large left pneumothorax. A time-out was completed verifying correct patient, pr ocedure, site, positioning, and implant(s) or special equipment if applicable. Utilizing bedside ultrasound, chest wall was evaluated for location for optimal chest tube placement. Location between the first and second ribs were marked on the skin using gentle pressure. The left sided chest wall was prepped with chlorhexidine and draped in the typical sterile fashion. 10 mL of 1% Lidocaine without epinephrine was used to anesthetize the skin down to the dorsal surface of the second rib. Air return confirmed entry into the pleural space. Lidocaine was injected into the pleural space for increased anesthetization. Introducer needle on syringe was inserted in perpendicular fashion taking care to ride just above the dorsal surface of the second rib. Entry into the pleural space was heralded by air return into the syringe while under gentle aspiration. Catheter over the needle apparatus was inserted over the needle into the pleural space. Drain was immediately connected to pre-prepared JONO pleur-evac system. Catheter was sutured securely in place and sterile dressing was applied. Chest tube was placed to waterseal. Patient tolerated procedure well. Blood Loss: Minimal Complications: None Post procedure Chest X-ray was ordered and reviewed by myself which demonstrated adequate placement. Coding CPT Codes Pulmonary/Thoracic - Pulmonary and Thoracic: 18284 Tube thoracostomy ([id number]) Pulmonary/Thoracic - Pulmonary and Thoracic: 36045 US, Chest, real time with imaging documentation ([id number]) [facility] [place] Codes (Charges) Pulmonary/Thoracic Procedure 1: Pulmonary and Thoracic: 07808 Tube thoracostomy Procedure 2: Pulmonary and Thoracic: 53842 US, Chest, real time with imaging documentation
--- NOTE | 2023-05-28 10:49 | XRay Report ---
XR chest 1V portable HISTORY: s/p tube thoracostomy placement COMPARISON: None. FINDINGS: Interval placement of a left-sided chest tube which terminates within the lateral pleural s pace. Significant decrease in size in the small left apical pneumothorax which measures 5 mm in thick ness. Left basilar linear densities favor subsegmental atelectasis. The right lung remains clear. The heart is mildly enlarged. No evidence for pulmonary edema. Mild S-shaped scoliosis of the thoracolum bar spine. IMPRESSION: Interval placement of a left-sided chest tube with decrease in size in the now small left pneumothora x. ACT 112: Negative or not required by law. Electronically signed by: Stevan Walters M.D. 05/28/2023 10:48 AM
--- NOTE | 2023-05-28 14:18 | Pulmonology Progress Note ---
Date of Service May 28, 2023 Assessment & Plan (1) Postprocedural pneumothorax: Plan: Status post bronchoscopy of left apical nodule on 05/27/2023. She developed a postprocedural pneumothorax which increased in size this morning. She was very symptomatic and I urgently placed a left apical small bore chest tube with substantial improvement of symptoms. She had significant air leak initially which went away after approximately 2 minutes. She had resolution of her shortness of breath shortly after the chest tube was placed. Postprocedure chest x-ray demonstrated adequate placement of the chest tube along with reexpansion of the lung. If she continues to do well, will clamp the chest tube this evening and repeat a chest x-ray 4 hours after with possible discharge home tomorrow. (2) Lung cancer: Plan: She has a history of non-small cell stage IV lung cancer which was treated with PD-L1 therapy and presumably is in remission. She had an enlarging left upper lobe nodule and oncology requested biopsy. Biopsy results pending at this time from bronchoscopy. Laterality: unspecified laterality Admission and Anticipated Discharge Date Admission Date: May 28, 2023 Subjective She had very significant shortness of breath this morning with exertion and even at rest. She was endorsing some mild chest pain. Her dyspnea improved dramatically after chest tube insertion in the left apex. Review of Systems Review of Systems: All systems reviewed & are unremarkable except as noted in HPI & below Physical Exam Physical Exam: Constitutional: Patient appears to be of their stated age. Patient is in no apparent distress. Patient is well-developed. Eyes: Pupils are equal round and reactive to light. Conjunctivae are normal. Anicteric sclera. Ears nose, mouth and throat: Mallampati class 1. Normal posterior oropharynx. Uvula is midline. Neck: Trachea is midline. Visual inspection is normal. Respiratory: Severely diminished lung sounds on the left with significant improvement post chest tube insertion. Cardiovascular: Regular rate and rhythm. No murmurs. No edema. Gastrointestinal: Normal bowel sounds, soft, nontender and nondistended. No hepatosplenomegaly noted. Musculoskeletal: No cyanosis. Patient is able to move all extremities. Strength is 5 out of 5 in the upper and lower extremities. Skin: No rashes, warm dry and intact. Neurologic: No obvious focal neurological deficits seen. Psychiatric: Alert and oriented x3 with a euthymic affect. Results & Data Results & Data Vital Signs (Past 12 Hours) Vital Signs Temp Pulse Pulse Resp BP Pulse Ox O2 Del Method 05/28/23 08:19 Oxymask 05/28/23 07:18 36.4 C L 78 18 185/96 H 94 Oxymask 05/28/23 03:21 36.7 C 87 18 155/82 H 99 Oxymask O2 Flow Rate 05/28/23 08:19 6 05/28/23 07:18 6 05/28/23 03:21 6 PG Care Time/CCT Total # of Minutes Spent Total Time Spent with Patient: Total time spent is greater than 50% in coordination of care (as documented) at patient's floor/unit and/or counseling patient: Coding Level of Care Code 30220 SUB INP/OBS CARE 2/35MIN Diagnoses Postprocedural pneumothorax J95.811 Lung cancer C34.90 Laterality: unspecified laterality
--- NOTE | 2023-05-29 07:56 | XRay Report ---
XR chest 1V portable HISTORY: 4 hours s/p chest tube clamping COMPARISON: Chest 05/28/2023. FINDINGS: Left-sided chest tube is unchanged in position. A small left apical pneumothorax is similar to the prior study demonstrating a maximal pleural gap of 5 mm. Left basilar linear densities persis t and favor subsegmental atelectasis or scarring. No new focal lung consolidations. The heart remains mildly enlarged. There is a tortuous thoracic aorta. No evidence for pulmonary edema. IMPRESSION: Left-sided chest tube is unchanged in position. No significant change in the small left apical pneumo thorax. ACT 112: Negative or not required by law. Electronically signed by: Stevan Walters M.D. 05/29/2023 7:55 AM
--- NOTE | 2023-05-29 08:11 | XRay Report ---
XR chest 1V portable CLINICAL HISTORY: Pneumothorax. COMPARISON STUDY: Chest radiograph May 28, 2023 at 7:07 PM. FINDINGS: Left pleural catheter remains in place. A small left pneumothorax with pleural separation o f 6 mm has slightly increased in size. Left upper lobe pulmonary nodule is better depicted on prior C T. No evidence for pulmonary edema. Cardiomediastinal silhouette is stable. IMPRESSION: Left pleural catheter in place. Slight increase in size of a small left apical pneumotho rax. ACT 112: Negative or not required by law. Electronically signed by: Delvin Davies M.D. 05/29/2023 8:10 AM
--- NOTE | 2023-05-29 10:15 | XRay Report ---
XR chest 1V portable HISTORY: Pneumothorax. Follow-up. COMPARISON: Chest 05/29/2023. FINDINGS: A left pleural catheter is unchanged in position. A small left apical pneumothorax is again noted. This is similar to the prior study and demonstrates a maximal pleural gap of 6 mm. No right-s ided pneumothorax. The heart is stable in size. There is a tortuous thoracic aorta. Bibasilar linear densities favor subsegmental atelectasis. No evidence for pulmonary edema. No acute fractures. Left u pper lobe nodule is better appreciated on the prior studies. IMPRESSION: No change in the small left pneumothorax. The left-sided chest tube is unchanged in position. ACT 112: Negative or not required by law. Electronically signed by: Stevan Walters M.D. 05/29/2023 10:14 AM
--- NOTE | 2023-05-29 11:49 | Pulmonology Progress Note ---
Date of Service May 29, 2023 Assessment & Plan (1) Postprocedural pneumothorax: Plan: Status post bronchoscopy of left apical nodule on 05/27/2023. Left apical chest tube placed 05/28/2023 due to expanding pneumothorax. She now has a small residual pneumothorax measuring 6 mm in the left apex. Chest tube has been clamped overnight and the pneumothorax appears unchanged. Will likely repeat an x-ray later today and if remains stable, will remove chest tube. (2) Lung cancer: Plan: She has a history of non-small cell stage IV lung cancer which was treated with PD-L1 therapy and presumably is in remission. She had an enlarging left upper lobe nodule and oncology requested biopsy. Forcep biopsy suggests small granuloma. Mini BAL from the location of the left upper lobe nodule d emonstrates 1 cluster of adenocarcinoma. Patient will need follow-up with oncology. Patient aware of the results. Laterality: unspecified laterality (3) Hypoxia: Plan: Hypoxia is likely multifactorial related to bronchoscopy, pneumothorax and possibly component of diastolic heart failure. She has been hypertensive this admission and may have an element of diastolic heart failure. Will obtain echo, BNP, BMP and CBC for further evaluation. Will have to consider CT chest with contrast to rule out PE. However, patient is not hypoxic at rest or tachycardic. She does become dyspneic with exertion and mildly hypoxemic. She may ultimately need to be sent home on supplemental oxygen for at least a brief period of time. Will involve case management. (4) Dyspnea on exertion: Plan: See comments above. Likely multifactorial related to bronchoscopy, history of lung cancer and pneumothorax. Hopefully this will continue to improve. I discussed with the patient regarding possible discharge today versus tomorrow depending on how she feels in the late afternoon. Admission and Anticipated Discharge Date Admission Date: May 28, 2023 Subjective She denies any shortness of breath at rest, but when ambulating the hallways her oxygen levels desaturate to the mid 80s and she does endorse significant shortness of breath. Patient notes that over the past 2 weeks she has had some mildly increasing shortness of breath Review of Systems Review of Systems: All systems reviewed & are unremarkable except as noted in HPI & below Physical Exam Physical Exam: Constitutional: Patient appears to be of their stated age. Patient is in no apparent distress. Patient is well-developed. Eyes: Pupils are equal round and reactive to light. Conjunctivae are normal. Anicteric sclera. Ears nose, mouth and throat: Mallampati class 2. Normal posterior oropharynx. Uvula is midline. Neck: Trachea is midline. Visual inspection is normal. Respiratory: Clear to auscultation bilaterally. No use of accessory muscles. No significant clubbing noted. Left apical chest tube noted in the second intercostal space which is currently clamped. Cardiovascular: Regular rate and rhythm. No murmurs. No edema. Gastrointestinal: Normal bowel sounds, soft, nontender and nondistended. No hepatosplenomegaly noted. Musculoskeletal: No cyanosis. Patient is able to move all extremities. Strength is 5 out of 5 in the upper and lower extremities. Skin: No rashes, warm dry and intact. Neurologic: No obvious focal neurological deficits seen. Psychiatric: Alert and oriented x3 with a euthymic affect. Results & Data Results & Data Vital Signs (Past 12 Hours) Vital Signs Temp Pulse Resp Resp Resp Resp BP 05/29/23 11:21 36.4 C L 73 18 170/83 H 05/29/23 09:46 22 18 16 05/29/23 07:58 36.8 C 82 20 142/82 H 05/29/23 07:54 05/29/23 02:40 36.7 C 72 16 154/81 H Pulse Ox Pulse Ox Pulse Ox Pulse Ox O2 Del Method O2 Flow Rate 05/29/23 11:21 95 Nasal Cannula 1 05/29/23 09:46 86 L 93 94 Room Air 05/29/23 07:58 92 Nasal Cannula 1 05/29/23 07:54 Nasal Cannula 1 05/29/23 02:40 98 Nasal Cannula 2 PG Care Time/CCT Total # of Minutes Spent Total Time Spent with Patient: Total time spent is greater than 50% in coordination of care (as documented) at patient's floor/unit and/or counseling patient: Coding Level of Care Code 89352 SUB INP/OBS CARE 3/50MIN Diagnoses Postprocedural pneumothorax J95.811 Lung cancer C34.90 Laterality: unspecified laterality Hypoxia R09.02 Dyspnea on exertion R06.09
[2023-05-29 12:21] LABS: Hematocrit (blood only) 37.8 % (37.0-47.0); Hemoglobin 12.8 g/dl (12.0-16.0); Mean Corpuscular Hemoglobin 30.5 pg (25.0-34.0); Mean Corpuscular Hgb Conc 33.9 g/dL (32.0-36.0); Mean Corpuscular Volume 90.2 fL (80.0-100.0); Mean Platelet Volume 8.1 fL (9.4-12.4); Platelet Count 354 K/uL (130-400); RDW Coefficient of Variation 12.5 % (11.5-14.5); Red Blood Count 4.19 M/uL (4.20-5.40); White Blood Count 12.43 K/ul (4.8-10.8)
[2023-05-29 12:40] LABS: BUN Creatinine Ratio 23.2 (10-20); Calcium 9.1 mg/dl (8.6-10.3); Est GFR (African American) 92.6 ml/min; Est GFR (Non-African American) 79.9 ml/min; Potassium 3.9 mmol/L (3.5-5.1)
--- NOTE | 2023-05-29 16:23 | XCELERA ---
[id number]
--- NOTE | 2023-05-29 16:26 | XRay Report ---
XR chest 1V portable HISTORY: Follow-up left-sided pneumothorax. COMPARISON: Chest 05/29/2023. FINDINGS: No change in the small left apical pneumothorax with a pleural gap of 5 mm. Left-sided ches t tube is unchanged in position. Left upper lobe nodule is better appreciated on the prior CT examina tion. Right lung is clear. The heart is stable in size. No evidence for pulmonary edema. No focal osman g consolidations to suggest pneumonia. IMPRESSION: No change in the small left hydropneumothorax. ACT 112: Negative or not required by law. Electronically signed by: Stevan Walters M.D. 05/29/2023 4:25 PM
--- NOTE | 2023-05-29 18:01 | Discharge Summary ---
Date of Service May 29, 2023 Admission HPI Per Admitting Provider Patient presents today for evaluation management of a pulmonary nodule. History is obtained from discussion with the patient and her daughter as well as review the electronic medical record. The patient is an 83-year-old female with a history of stage IV adenocarcinoma status post therapy with medical oncology. She has been followed and found to have an enlarging left upper lobe pulmonary nodule. There was concern about this being associated with her primary malignancy (adenocarcinoma) versus an alternative malignancy. Biopsy was requested. Patient is not reporting any significant new respiratory complaints. She denies shortness of breath, cough, fevers, chills, or night sweats. Her appetite is good and her weight remains stable. Medical history review of systems is unchanged from Dr. Burks's note 05/10/2020. Admission Exam (Per Admitting) Constitutional WD/WN, vitals as above Discharge Data Procedures Performed Operation Date: 05/27/23 13:00 Actual Procedures p Robotic Navigational Bronchoscopy, Transbronchial biopsy, bronchoscopy, (Not Applicable) - Garcia Fam MD s Endobronchial Ultrasound (EBUS)(Not Applicable) - Garcia Fam MD Hospital Course (1) Postprocedural pneumothorax: Status post bronchoscopy of left apical nodule on 05/27/2023. Left apical chest tube placed 05/28/2023 due to expanding pneumothorax. She now has a small residual pneumothorax measuring 6 mm in the left apex. Chest tube has been clamped overnight and the pneumothorax appears unchanged. The patient ambulated around the hallways and repeat chest x-ray was obtained with stable small apical pneumothorax. Chest tube was removed without issue. Patient will need follow- up with a chest x-ray in 3 to 4 days. (2) Lung cancer: She has a history of non-small cell stage IV lung cancer which was treated with chemotherapy and PD-L1 therapy and presumably is in remission. She had an enlarging left upper lobe nodule on CT chest and oncology requested biopsy. Forcep biopsy suggests granuloma. Mini BAL from the location of the left upper lobe nodule demonstrates 1 cluster of adenocarcinoma. Patient will need follow- up with oncology. Patient aware of the results. Dr. Bear updated regarding the results. She also has an appointment already scheduled with radiation oncology as an outpatient. (3) Hypoxia: Hypoxia is likely multifactorial related to bronchoscopy and pneumothorax. It is possible that she has had longstanding hypoxemia that has went unrecognized. Patient will be discharged home with 2 L of oxygen to be used with exertion. Hypoxemia workup completed in the hospital included echocardiogram, CBC, BNP and troponin which were all unremarkable. (4) Dyspnea on exertion: See comments above. Likely multifactorial related to bronchoscopy, history of lung cancer and pneumothorax. Hopefully this will continue to improve. Dyspnea improved throughout the day and is now essentially back to baseline after removal of the chest tube.
--- NOTE | 2023-05-30 05:25 | Electrocardiogram Report ---
Test Reason : Blood Pressure : / mmHG Vent. Rate : 064 BPM Atrial Rate : 064 BPM P-R Int : 156 ms QRS Dur : 072 ms QT Int : 392 ms P-R-T Axes : 065 -19 -26 degrees QTc Int : 404 ms Normal sinus rhythm Nonspecific T wave abnormality Abnormal ECG When compared with ECG of 27-NOV-2022 13:29, Premature atrial complexes are no longer Present Criteria for Septal infarct are no longer Present Non-specific change in ST segment in Anterior leads Nonspecific T wave abnormality, worse in Inferior leads Nonspecific T wave abnormality now evident in Lateral leads Confirmed by Samson Jefferson ([id number]) on 05/30/2023 5:25:07 AM Referred By: Garcia Fam Confirmed By:Samson Jefferson
== END 2023-05-29 18:41 | disposition home or self-care (01) | DRG 167 ==
LOC: ASU 11:09 → 3E 11:09